=== PATIENT | female | born 1950 | race Caucasian/White ===

== ENCOUNTER 2024-08-24 14:24 | Outpatient (CLI) | payer MEDICARE, SELFPAY ==
[2024-08-24 15:14] LABS: Alanine Aminotransferase 23 U/L (6-35); Aspartate Amino Transferase 45 U/L (14-36)
== END 2024-08-24 14:25 | disposition home or self-care (01) ==
PROVIDERS: PCP Family Medicine; Visit Provider Podiatrist Foot & Ankle Surgery
DX: B35.1 Tinea unguium (principal)
CPT/HCPCS: 36415; 84450; 84460

== ENCOUNTER 2024-09-06 12:30 | Outpatient (CLI) | payer MEDICARE, SELFPAY ==
--- OUTSIDE RECORDS SUMMARY | 2024-09-06 13:03 | XMS_ITS | CCD ---
Author Name Interface, [id number] lity Address [address] [address] Organization [facility] Address [address] [address] Care Team Providers Care Summer Babysitter Name Role Phone Ryan Reece Unavailable Unavailable Reason for Visit Functional Status Date Name Score 02/22/2014 Karnofsky performance status 90 02/18/2013 Karnofsky performance status 90 03/05/2012 Karnofsky performance status 90 02/21/2011 Karnofsky performance status 90 07/31/2010 Karnofsky performance status 90 03/26/2010 Karnofsky performance status 90 02/05/2010 Karnofsky performance status 90 Medications Date Name Route Dose Frequency Instructions Start Date End Date Status 02/22 Thiamine Oral PO 1.0 TABLET(S) daily 2013 active 02/22 Thomas-3 Fatty Acids Oral PO 1.0 CAPSULE(S) daily 2013 active 02/22 Pantoprazole (Sodium) Oral Delayed Release PO 1.0 TABLET(S) daily 2013 active 02/22 Calcium Carb-Cholecalcif shelli Oral 600 mg-20 mcg (800 unit) PO 1.0 TABLET(S) daily 2013 active 02/22 Eucalyptus-Peppe rmint Oil Nasal Solution In each nostril 1.0 APPLICATION as directed 2013 active 02/22 Cevimeline Oral PO 1.0 CAPSULE(S) BID 2013 active 02/22 Docusate Sodium Oral PO 1.0 CAPSULE(S) PRN 2013 active 02/22 Gabapentin Oral PO 1.0 TABLET(S) daily 2013 active 02/22 Loratadine Oral PO 1.0 TABLET(S) daily 2013 active 02/22 Levothyroxine Oral PO 1.0 TABLET(S) daily 2013 active 02/22 Paroxetine Oral PO 1.0 TABLET(S) daily 2013 active 02/22 Aspirin Oral PO 1.0 TABLET(S) daily 2013 active 02/22 Fluticasone Nasal [place] 50 mcg/actuation Inhalation route 50.0 MCG daily 2013 active 02/22 Cholecalciferol Oral PO 1.0 CAPSULE(S) daily 2013 active 02/22 Miscellaneous Drug PO 1.0 TABLET(S), SUSTAINED ACTION daily 2013 active 02/22 Simvastatin Oral PO 1.0 TABLET(S) daily on hold while on bactrim 2013 active 02/22 Tolterodine Oral 24 hr Cap PO 1.0 CAPSULE(S), SUSTAINED RELEASE 24 HR daily 2013 active 02/22 Montelukast Oral PO 10.0 MG daily 2013 active 02/22 Dextrin Oral Powder GRAM as directed 2013 active 02/22 Diclofenac Oral Delayed Release PO 1.0 TABLET(S), ENTERIC COATED BID 2013 active 02/18 Aspirin Oral Delayed Release (Enteric Coated) PO 2.0 TABLET(S) daily 2012 active Problems Diagnosis Status Date of Diagnosi s Hypothyroidism (disorder) Active Body mass index [BMI] 45.0-49.9, adult Inactive Vitamin D deficiency (disorder) Active 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
--- OUTSIDE RECORDS SUMMARY | 2024-09-06 13:03 | XMS_ITS | CCD ---
Author Name Interface, [id number] lity Address [address] [address] Organization [facility] Address [address] [address] Care Team Providers Care Spanish Instructor Name Role Phone Ryan Reece Unavailable Unavailable [...] PO 1.0 TABLET(S) daily 2013 active 02/22 [place]-3 Fatty Acids Oral PO 1.0 CAPSULE(S) daily 2013 active 02/22 Eucalyptus-Peppe rmint Oil Nasal Solution In each nostril 1.0 APPLICATION as directed 2013 active 02/22 Calcium Carb-Cholecalcif shelli Oral 600 mg-20 mcg (800 unit) PO 1.0 TABLET(S) daily 2013 active 02/22 Pantoprazole (Sodium) Oral Delayed Release PO 1.0 TABLET(S) daily 2013 active 02/22 Cevimeline Oral PO 1.0 [...] TABLET(S) daily 2013 active 02/22 Fluticasone Nasal [place] 50 mcg/actuation Inhalation route 50.0 MCG daily [...] Body mass index [BMI] 45.0-49.9, adult Inactive 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
[2024-09-06 16:28] LABS: Basophils Absolute Auto 0.1 K/mm3 (0.0-0.1); Basophils Percent Auto 1.2 % (0.2-1.2); Eosinophils Absolute Auto 0.1 K/mm3 (0-0.3); Eosinophils Percent Auto 2.3 % (0-4.4); Hematocrit 38.9 % (37.0-47.0); Hemoglobin 12.4 g/dL (12.0-15.0); Immature Granulocyte Absolute 0.02 K/mm3 (0.00-0.031); Immature Granulocyte Percent A 0.4 % (0-0.5); Immature Platelet Fraction Pct 6.6 % (0.9-11.2); Lymphocytes Absolute Auto 1.64 K/mm3 (0.9-3.2); Lymphocytes Percent Auto 29.2 % (18.3-44.2); Mean Corpuscular HGB Conc 31.9 g/dl (32-36); Mean Corpuscular Hemoglobin 31.4 pg (26-34); Mean Corpuscular Volume 98.5 fl (80-100); Mean Platelet Volume 13.5 fl (7.4-10.4); Monocytes Absolute Auto 0.4 K/mm3 (0.1-0.6); Monocytes Percent Auto 7.3 % (2.6-8.5); Neutrophils Absolute Auto 3.3 K/mm3 (1.3-6.7); Neutrophils Percent Auto 59.6 % (45.5-73.1); Platelet Count Result 151 k/mm3 (150-375); Red Blood Count 3.95 M/mm3 (4.2-5.4); Red Cell Distribution Width 14.3 % (11.5-14.5); White Blood Count 5.6 K/mm3 (4.5-10.0)
[2024-09-06 17:45] LABS: Folic Acid > 20.0 ng/mL (2.76->20)
== END 2024-09-06 12:31 | disposition home or self-care (01) ==
LOC: ANHGOSHLAB 12:31
PROVIDERS: PCP Family Medicine; Visit Provider Otolaryngology Otolaryngology/Facial Plastic Surgery
DX: K14.0 Glossitis (principal); K14.4 Atrophy of tongue papillae
CPT/HCPCS: 36415; 82607; 82746; 85025; 85055

== ENCOUNTER 2024-09-17 10:01 | Outpatient (CLI) | payer MEDICARE, SELFPAY ==
--- NOTE | ~2024-09-17 | XR_ITS ---
EXAMINATION: XR hand RT 2V, XR hand LT 2V DATE: 09/17/2024 11:26 INDICATION: Sjogren syndrome with keratoconjunctivitis TECHNIQUE: 1. Posteroanterior and lateral views of the left hand were obtained. 2. Posteroanterior and lateral views of the right hand were obtained. COMPARISON: None. FINDINGS: Left hand: Bone alignment is normal. No fracture. Polyarticular osteoarthritis, severe at the first carpal metac arpal joint, moderate at the triscaphe joint and mild at the wrist, first metacarpophalangeal and mul tiple predominantly distal interphalangeal joints. No erosions to suggest an inflammatory arthritis. Chondrocalcinosis in the region of the triangular fibrocartilage complex. Sclerotic bone island versu s loose body projects over the distal ulna. Mild soft tissue swelling at the ulnar aspect of the wris t. Right hand: Bone alignment is normal. No fracture. Mild polyarticular osteoarthritis at the wrist, radial aspect of the carpus and multiple metacarpophalangeal and interphalangeal joints. No erosions to suggest inf lammatory arthritis. Additional chondral calcinosis of the right triangular fibrocartilage complex. S oft tissues are unremarkable. IMPRESSION: 1. Polyarticular osteoarthritis at the bilateral hands and wrists, moderate to severe at the radial a spect of the left carpus and otherwise mild. Reviewed, dictated and finalized at location B. NG CAN TENDER IMPRESSION: 1. Polyarticular osteoarthritis at the bilateral hands and wrists, moderate to severe at the radial aspect of the left carpus and otherwise mild.
--- NOTE | ~2024-09-17 | XR_ITS ---
EXAMINATION: XR_CERV2-3V_CR DATE: 09/17/2024 11:26 INDICATION: Sjogren syndrome with keratoconjunctivitis. TECHNIQUE: 4 views of cervical spine were obtained. COMPARISON: None. FINDINGS: There is 9 degrees levocurvature of cervicothoracic spine. Vertebral body heights are nora l. There is mildly decreased disc height at C5-C6. There is multilevel mild facet joint osteoarthriti s. No central canal stenosis or prevertebral soft tissue swelling. IMPRESSION: 1. Mild cervical spondylosis. Reviewed, dictated and finalized at location A. N YARN DYER
--- NOTE | ~2024-09-17 | XR_ITS ---
EXAMINATION: XR foot RT 2V DATE: 09/17/2024 11:26 INDICATION: Sjogren's syndrome with keratoconjunctivitis. TECHNIQUE: 2 views of right foot were obtained. COMPARISON: None. FINDINGS: There is a rocker-bottom foot. There are changes of arthrodesis of talus, calcaneus, navicu lar, and cuboid with multiple screws and padmini. No fracture. There is severe osteoarthritis of the naviculocuneiform joints. IMPRESSION: 1. Rocker-bottom foot. 2. Arthrodesis procedures involving the talus, calcaneus, navicular, and cuboid. 3. Severe osteoarthritis of the naviculocuneiform joints. Reviewed, dictated and finalized at location A. AN TUTOR IMPRESSION: 1. Rocker-bottom foot. 2. Arthrodesis procedures involving the talus, calcaneus, navicular, and cuboid . 3. Severe osteoarthritis of the naviculocuneiform joints.
--- NOTE | ~2024-09-17 | XR_ITS ---
EXAMINATION: XR lumbar spine 2-3V DATE: 09/17/2024 11:26 INDICATION: Sjogren syndrome with keratoconjunctivitis. TECHNIQUE: 3 views of lumbar spine were obtained. COMPARISON: None. FINDINGS: There is 29 degrees dextroscoliosis of lumbar spine. There is 3 mm retrolisthesis of L1 on L2 and L2 on L3 and 6 mm anterolisthesis of L4 and L5. Vertebral body heights are normal. There is se verely decreased disc height at L1-L2 and L2-L3 and moderately decreased disc height at L3-L4 and L4- L5. There is multilevel severe facet joint osteoarthritis. There are surgical clips in right abdomen. There is a lap band in expected position. IMPRESSION: 1. Severe lumbar spondylosis. 2. Lumbar dextroscoliosis. Reviewed, dictated and finalized at location A. SHEARER
--- NOTE | ~2024-09-17 | XR_ITS ---
EXAMINATION: XR sacroiliac joints min 3V DATE: 09/17/2024 11:26 INDICATION: Sjogren's syndrome with keratoconjunctivitis. TECHNIQUE: 3 views of the sacroiliac joints were obtained. COMPARISON: None. FINDINGS: There is lumbar dextro scoliosis and severe spondylosis. No fracture. There is mild osteoar thritis of the sacroiliac joints and hip joints. IMPRESSION: 1. Mild osteoarthritis of the sacroiliac joints. No evidence of inflammatory arthropathy. Reviewed, dictated and finalized at location A. ING HAND IMPRESSION: 1. Mild osteoarthritis of the sacroiliac joints. No evidence of inflammatory ar thropathy.
--- NOTE | ~2024-09-17 | XR_ITS ---
EXAMINATION: XR foot LT 2V DATE: 09/17/2024 11:26 INDICATION: Sjogren syndrome with keratoconjunctivitis. TECHNIQUE: 2 views of left foot were obtained. COMPARISON: None. FINDINGS: There is a rocker-bottom foot. There is fusion of the talus, calcaneus, navicular, cuneifor ms, and cuboid with multiple screws and padmini. There is osteoarthritis of Lisfranc joint, severe at first tarsometatarsal joint. There is mild osteoarthritis of first metatarsophalangeal joint and prosper e of the interphalangeal joints. There is a retained wire in the lateral ankle and hindfoot. There is an 8 mm subcutaneous density plantar to the midfoot that may be dystrophic calcification. IMPRESSION: 1. Rocker-bottom foot with hindfoot and midfoot arthrodesis. 2. Polyarticular osteoarthritis, severe at first tarsometatarsal joint. Reviewed, dictated and finalized at location A. RT COOLER
[2024-09-17 10:45] LABS: Add Urine Microscopic? NO; Appearance Urine Clear (Clear); Bilirubin Urine Negative (Negative); Blood Urine Negative (Negative); Color Urine Yellow (Yellow); Glucose Urine UA Negative (Negative); Ketones Urine Negative (Negative); Leukocyte Esterase Ur Negative LEU/UL (Negative); Nitrate Urine Negative (Negative); Protein Urine Negative (Negative); Specific Grav Ur 1.006 (1.001-1.035); Urobilinogen Urine 0.2 mg/dL (<2.0); pH Urine 5.5 (5.0-9.0)
[2024-09-17 10:46] LABS: Basophils Percent Auto 0.8 % (0.2-1.2); Eosinophils Absolute Auto 0.2 K/mm3 (0-0.3); Hematocrit 37.9 % (37.0-47.0); Immature Granulocyte Absolute 0.01 K/mm3 (0.00-0.031); Immature Granulocyte Percent A 0.2 % (0-0.5); Lymphocytes Absolute Auto 1.38 K/mm3 (0.9-3.2); Lymphocytes Percent Auto 27.4 % (18.3-44.2); Mean Corpuscular HGB Conc 31.7 g/dl (32-36); Mean Corpuscular Hemoglobin 30.8 pg (26-34); Mean Corpuscular Volume 97.4 fl (80-100); Mean Platelet Volume 10.9 fl (7.4-10.4); Monocytes Absolute Auto 0.2 K/mm3 (0.1-0.6); Monocytes Percent Auto 4.8 % (2.6-8.5); Neutrophils Absolute Auto 3.2 K/mm3 (1.3-6.7); Neutrophils Percent Auto 63.8 % (45.5-73.1); Platelet Count Result 157 k/mm3 (150-375); Red Blood Count 3.89 M/mm3 (4.2-5.4); Red Cell Distribution Width 14.3 % (11.5-14.5)
--- OUTSIDE RECORDS SUMMARY | 2024-09-17 10:48 | XMS_ITS | CCD ---
Author Name Interface, [id number] lity Address [address] [address] [facility] Address [address] [address] Care Team Providers Care Hospital Education Coordinator Name Role Phone Ryan Reece Unavailable Unavailable Reason for Visit Functional Status Medications Problems
--- OUTSIDE RECORDS SUMMARY | 2024-09-17 10:48 | XMS_ITS | CCD ---
Author Name Interface, [id number] lity Address [place] [address] Organization [facility] Address [address] [address] Care Team Providers Care Roller Mill Tender Name Role Phone Ryan Reece Unavailable Unavailable [...] PO 1.0 TABLET(S) daily 2013 active 02/22 [place]-3 Fatty Acids Oral PO 1.0 CAPSULE(S) daily [...] TABLET(S) daily 2013 active 02/22 Fluticasone Nasal [place] 50 mcg/actuation Inhalation route 50.0 MCG daily [...]
[2024-09-17 10:56] LABS: Rheumatoid Factor < 12.0 IU/ML (<12)
[2024-09-17 10:57] LABS: Alanine Aminotransferase 23 U/L (6-35); Albumin Level 4.3 g/dL (3.5-5.1); Alkaline Phosphatase 44 U/L (38-126); Anion Gap 7 mmol/L (4-12); Aspartate Amino Transferase 30 U/L (14-36); Bilirubin,Total 0.8 mg/dL (0.2-1.3); Blood Urea Nitrogen 20 mg/dL (7-17); CRP < 0.5 mg/dL (<1.0); Calcium 9.5 mg/dL (8.4-10.2); Carbon Dioxide 32 mmol/L (22-30); Chloride 100 mmol/L (98-107); Estimated Glomerular Filt Rate > 60; Glucose 84 mg/dL (65-110); Phosphorus 3.5 mg/dL (2.5-4.5); Potassium 4.1 mmol/L (3.4-5.0); Sodium 139 mmol/L (137-145); Uric Acid 5.7 mg/dL (2.5-7.5)
[2024-09-17 11:18] LABS: Erythrocyte Sedimentation Rate 21 mm/hr (0-20)
[2024-09-20 13:53] LABS: Cyclic Citrullinated Peptide <16 UNITS
[2024-09-21 11:58] LABS: NIL 0.03 IU/mL; Quantiferon TB Plus, 1T NEGATIVE (NEGATIVE); TB1-NIL <0.00 IU/mL; TB2-NIL <0.00 IU/mL
[2024-09-21 13:03] LABS: ANA Pattern Cytoplasmic; ANA Titer 1:40 titer; Anti Nuclear Antibody Pattern Nuclear Envelope
== END 2024-09-17 10:02 | disposition home or self-care (01) ==
PROVIDERS: PCP Family Medicine; Visit Provider Internal Medicine
DX: M47.818 Spondylosis without myelopathy or radiculopathy, sacral and sacrococcygeal region (principal); M47.816 Spondylosis without myelopathy or radiculopathy, lumbar region; M41.86 Other forms of scoliosis, lumbar region; M47.812 Spondylosis without myelopathy or radiculopathy, cervical region; M25.542 Pain in joints of left hand; M25.541 Pain in joints of right hand; M25.532 Pain in left wrist; M25.531 Pain in right wrist; Q66.89 Other specified congenital deformities of feet; Z98.1 Arthrodesis status; M19.09 Primary osteoarthritis, other specified site; M19.071 Primary osteoarthritis, right ankle and foot; M35.01 Sjogren syndrome with keratoconjunctivitis; M81.0 Age-related osteoporosis without current pathological fracture
CPT/HCPCS: 36415; 72040; 72100; 72202; 73120; 73620; 80053; 81003; 84100; 84443; 84550; 85025; 85652; 86038; 86039; 86140; 86200; 86430; 86480

== ENCOUNTER 2024-11-23 14:02 | Outpatient (CLI) | payer MEDICARE, SELFPAY ==
[2024-11-23 15:01] LABS: Alanine Aminotransferase 23 U/L (6-35); Aspartate Amino Transferase 48 U/L (14-36)
--- OUTSIDE RECORDS SUMMARY | 2024-11-23 15:12 | XMS_ITS | CCD ---
Author Name Interface, [id number] lity Address [place] [address] Organization [facility] Address [address] [address] Care Team Providers Care Christian Education Director Name Role Phone Ryan Reece Unavailable Unavailable [...] PO 1.0 TABLET(S) daily 2013 active 02/22 [place]-3 Fatty Acids Oral PO 1.0 CAPSULE(S) daily [...] TABLET(S) daily 2013 active 02/22 Fluticasone Nasal [place] 50 mcg/actuation Inhalation route 50.0 MCG daily 2013 active 02/22 Cholecalciferol Oral PO 1.0 CAPSULE(S) daily 2013 active 02/22 Miscellaneous Drug PO 1.0 TABLET(S), SUSTAINED ACTION daily 2013 active 02/22 Simvastatin Oral PO 1.0 TABLET(S) daily on hold while on bactrim 2013 active 02/22 Montelukast Oral PO 10.0 MG daily 2013 active 02/22 Tolterodine Oral 24 hr Cap PO 1.0 CAPSULE(S), SUSTAINED RELEASE 24 HR daily 2013 active 02/22 Dextrin Oral Powder [...]
--- OUTSIDE RECORDS SUMMARY | 2024-11-23 15:13 | XMS_ITS | Patient Health Record ---
[facility] Address [address] [place] [address] Care Team Providers Care Tile Molder Hand Name Role Phone DO NOT USE November Primary Care Provider ANNA Velez Unavailable [phone] Allergies Allergen (clinical drug ingredient) Drug/Non Drug Allergy documented on EMR Reaction Allergy Type Onset Date Status adhesive on legs (uncoded) Unknown Allergy Active Benzoin Unknown Drug Allergy Active ciprofloxacin Cipro Unknown Drug Allergy Act holly erythromycin Erythromycin Unknown Drug Allergy A ctive ketoprofen Ketoprofen Unknown Drug Allergy Activ e penicillamine Penicillamine Unknown Drug Allergy Active Tetanus Unknown Drug Allergy Active Reason For Referral No Information Medications Medication SIG (Take, Route, Frequency, Duration) Notes Start Date End Date Status Folic Acid 800 MCG 1 tablet Orally Once a day Active Probiotic - Orally Active traMADol HCl 50 MG as directed Orally Active Vitamin B1 Active Cevimeline HCl 30 MG 1 capsule Orally Th ree times a day for 30 day(s) Active Fish Oil Active [place] 10-325 MG 1 tablet as needed Orally every 6 hrs Active Colace 100 MG 1 capsule as needed Orally Once a day Active Aspirin 81 MG 1 tablet Orally Once a day Active Vitamin B12 Active Levothroid Active Systane Active Vitamin C ER 500 MG 1 capsule Orally Onc e a day for 30 day(s) Active Glucosamine Chondroitin Complx - Orally Active Singulair 10 MG 1 tablet Orally Once a day for 30 day(s) Active Zolpidem Tartrate 10 MG 1 tablet at bedt shayla as needed Orally Once a day Active Simvastatin 20 MG 1 tablet in the even ing Orally Once a day Active Nasacort Allergy 24HR 55 MCG/ACT 1 spray in each nostril Nasally Once a day Active Cyclobenzaprine HCl 10 MG Oral for 14 Active Vitamin C 500 MG as directed Orally Active Caltrate 600+D 600-800 MG-UNIT 1 tablet with a meal Orally Once a day Active Paxil 10 MG 1 tablet in the morn ing Orally Once a day for 30 day(s) Active CoQ10 200 MG 1 capsule with a asad l Orally Once a day Active Albuterol Sulfate HFA 108 (90 Base) MCG/ACT 2 puffs as needed Inhalation every 6 hrs Active Iron 325 (65 Fe) MG 1 tablet Orally Once a day for 30 day(s) Active Imitrex 100 MG 1 tablet as needed Orally Twice a day Active Vitamin D3 5000 UNIT 1 tablet Orally Onc e a day Active Diclofenac Potassium 50 MG Oral for 30 Active Zocor 20 MG 1 tablet in the even ing Orally Once a day Active Mupirocin 2 % 1 application to affected area Externally Three times a day Active Sherry Allergy 180 MG 1 tablet as neede d Orally Once a day Active Advair Diskus 250-50 MCG/DOSE 1 puff Inhalation Twice a day Active Pantoprazole Sodium 40 MG 1 tablet Orall y Once a day for 30 day(s) Active Synthroid 150 MCG 1 tablet on an empty stomach in the morning Orally Once a day Active Montelukast Sodium 10 MG 1 tablet Orally Once a day for 30 day(s) Active Mucinex Active Social History Tobacco Use: Social History Observation Description Date Details (start date - stop date) Former Smoker NA - NA Tobacco Use/Smoking Question Answer Notes You are a former smoker Problems Problem Type SNOMED Code ICD Code Onset Dates Problem Status W/U Status Risk Notes Problem Peripheral venous insufficiency (25405692) Venous insufficiency (chronic) (peripheral) (I87.2) Active confirmed Problem [id number] Venous insufficiency (I87.2) Active confirmed Problem Varicose veins of lower extremity (15953740) 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) Active confirmed Plan Of Treatment No Information Insurance Providers Payer Name Payer Address Payer Phone Subscriber Number Group Number Insured Name Patient Relationship to Insured Coverage Start Date Coverage End Date MED[employer]ARE OF [place] [address] [place] [phone] [id number] MIRIAN CASIANO Self - patient is the insured 6 [facility] [employer] [address] [place] [address] [id number] PLAN F MIRIAN CASIANO Self - patient is the insured 6 Medical (General) History Medical History History ICD Code thyroid disease diverticulosis emphysema arthritis anemia asthma heart disease heart murmur Surgical History Surgery Date(Month/Year) eye surgery cholecystectomy foot surgery endovenous ablation knee replacement maxillary antrosomies
--- OUTSIDE RECORDS SUMMARY | 2024-11-23 15:13 | XMS_ITS | CCD ---
Author Name Interface, [id number] lity Address [place] [address] Organization [facility] Address [place] breakthroughs[place] [address] Care Team Providers Care Biodiesel Plant Manager Name Role Phone Ryan Reece Unavailable Unavailable [...] PO 1.0 TABLET(S) daily 2013 active 02/22 [place]-3 Fatty Acids Oral PO 1.0 CAPSULE(S) daily [...] TABLET(S) daily 2013 active 02/22 Fluticasone Nasal Emily 50 mcg/actuation Inhalation route 50.0 MCG daily [...]
== END 2024-11-23 14:03 | disposition home or self-care (01) ==
PROVIDERS: PCP Family Medicine; Visit Provider Podiatrist Foot & Ankle Surgery
DX: B35.1 Tinea unguium (principal)
CPT/HCPCS: 36415; 84450; 84460

== ENCOUNTER 2024-12-10 13:01 | Emergency (ER) | payer MEDICARE, SELFPAY ==
[2024-12-10] VITALS (16 sets, daily range): BP systolic 100–114; BP diastolic 44–64; PULSE 59–65; RESP 14–20; TEMP 36.2; O2SAT 96–100
--- NOTE | ~2024-12-10 | XR_ITS ---
Clinical Indication: Palpitations PA and lateral views of the chest: Comparison: None Findings: The lungs are clear, without evidence of focal consolidation or pleural effusion. Cardiome diastinal silhouette is prominent. Right shoulder arthroplasty present. Impression: No acute pulmonary abnormality. Cardiomegaly. Reviewed, dictated and finalized at [facility]. Impression: No acute pulmonary abnormality. Cardiomegaly.
--- NOTE | 2024-12-10 13:04 | ECG_ITS ---
Test Date: 2024-12-10 13:15:52 Measurements Intervals [place] Rate: 64 P: -37 MS: 271 QRS: -7 QRSD: 96 T: 59 QT: 406 QTc: 419 Interpretive Statements SINUS RHYTHM WITH FIRST DEGREE AV BLOCK No previous ECG available for comparison Electronically Signed On 12-10-2024 19:14:48 CDT by Ashlee Hutchinson
--- NOTE | 2024-12-10 13:17 | ED.ARRPALP ---
HPI - Arrhythmia/Palpitations General Chief Complaint: Arrhythmia/Palpitations <Ijeoma Anand STORE PRODUCT DEMONSTRATOR - Last Filed: 12/10/24 13:21> Stated Complaint: Palpitations, left shoulder pain <Ijeoma Anand APRN - Last Filed: 12/10/24 13:21> Time Seen by Provider: 12/10/24 13:15 <Ijeoma Anand STORE PRODUCT DEMONSTRATOR - Last Filed: 12/10/24 13:21> Focused HPI: Patient is a 74-year-old female who presents to the ER with palpitations. She reports she went for a walk earlier today and when she got home she felt her heart racing. Patient reports she took her vital signs and her blood pressure was low and her heart rate was low and irregular. She also endorses chest pain that radiated to her left shoulder. Patient reports she has a history of CHF, 2 blockages, and COPD. She denies any recent fevers, back pain, urinary symptoms, or acute leg swelling. Patient reports she had a separate incident similar to this one on December 03 but she did not come to the ER for evaluation at that time. GENERAL: Well-appearing, obese, and in no acute distress. HEAD: Normocephalic, atraumatic. CHEST: Clear to auscultation. ?No respiratory distress. HEART: Irregular rate and rhythm.? NEURO: ?Alert and oriented x3. Patient screened in triage and initial orders placed.? ?Additional care and disposition to be based upon?diagnostic testing and treatment. <Ijeoma Anand, STORE PRODUCT DEMONSTRATOR - Last Filed: 12/10/24 13:21> Focused HPI: Patient is a 74-year-old female who presents to the ER with palpitations. She reports she went for a walk earlier today and during the walk she felt her beating irregularly but slow. Patient reports she took her vital signs and her blood pressure was low and her heart rate was low and irregular. She also endorses chest pain that radiated to her left shoulder. Patient reports she has a history of CHF, 2 blockages, and COPD. She denies any recent fevers, back pain, urinary symptoms, or acute leg swelling. Patient reports she had a separate incident similar to this one on December 03 but she did not come to the ER for evaluation at that time. GENERAL: Well-appearing, obese, and in no acute distress. HEAD: Normocephalic, atraumatic. CHEST: Clear to auscultation. ?No respiratory distress. HEART: Irregular rate and rhythm.? NEURO: ?Alert and oriented x3. Patient screened in triage and initial orders placed.? ?Additional care and disposition to be based upon?diagnostic testing and treatment. <Ole Mcmahan MD - Last Filed: 12/10/24 21:33> History of Present Illness HPI narrative: I agree with the above HPI Patient reports that she did have a stress echo and cardiology workup in [place] in May of 2024. Patient denies any history of coronary artery disease but does have history of CHF During the episode today patient denies any chest pain. Patient does have emphysema and states she had unchanged shortness of breath <Ole Mcmahan MD - Last Filed: 12/10/24 21:33> Related Data Home Medications: Home Medications ?Medication ?Instructions ?Recorded ?Confirmed ?Last Taken ?Type Bacillus coagulans [Probiotic (B. PO 09/06/24 10/12/24 Unknown History coagulans)] albuterol sulfate 90 mcg/actuation 2 puff inhalation Q6H PRN 09/06/24 10/12/24 Unknown History aerosol inhaler (Ventolin HFA) shortness of breath or wheezing oweki-d-vinkfsywkmifb 400 unit 400 unit PO DAILY PRN 09/06/24 10/12/24 Unknown History tablet (Beano) ascorbate calcium (vitamin C) 500 500 mg PO DAILY 09/06/24 10/12/24 Unknown History mg tablet aspirin 81 mg tablet 81 mg PO DAILY 09/06/24 10/12/24 Unknown History calcium 600 mg (as carbonate)-vit 1 tablet PO DAILY 09/06/24 10/12/24 Unknown History D3 20 mcg (800 unit) chewable tablet (Caltrate plus D) cevimeline 30 mg capsule 1 cap PO TID 09/06/24 10/12/24 Unknown History coenzyme Q10 100 mg capsule 200 mg PO DAILY 09/06/24 10/12/24 Unknown History (CoQ-10) diclofenac sodium 1 % topical gel 2 g topical TID 09/06/24 10/12/24 Unknown History (Arthritis Pain (diclofenac)) diosmin complex no.1 900 mg PO QAM 09/06/24 10/12/24 Unknown History docusate sodium 100 mg capsule 200 mg PO QHS 09/06/24 10/12/24 Unknown History (Colace) ferrous sulfate 325 mg (65 mg 325 mg PO QHS 09/06/24 10/12/24 Unknown History iron) tablet fexofenadine 60 mg tablet (Sherry 60 mg PO Q12H 09/06/24 10/12/24 Unknown History Allergy) fluticasone propionate 230 2 puff inhalation BID 09/06/24 10/12/24 Unknown History mcg-salmeterol 21 mcg/actuation HFA inhaler (Advair HFA) folic acid 800 mcg tablet 0.8 mg PO 3XW 09/06/24 10/12/24 Unknown History furosemide 40 mg tablet (Lasix) 40 mg PO QAM 09/06/24 10/12/24 Unknown History glucosamine 750 jo-jptcqvsmdse-bga tablet PO 09/06/24 10/12/24 Unknown History no1 625 mg-C 30 mg-eliceo 1 mg tablet (Jbkfuognatj-Gcnipxdzoky-BLM) guaifenesin 1,200 mg tablet, 1,200 mg PO BID 09/06/24 10/12/24 Unknown History extended release 12 hr (Mucinex) ketotifen fumarate 0.025 % (0.035 1 drp EACH EYE BID 09/06/24 10/12/24 Unknown History %) eye drops (Alaway) lactulose 10 gram/15 mL oral 10 g PO QAM 09/06/24 10/12/24 Unknown History solution levothyroxine 112 mcg tablet 112 mcg PO DAILY 09/06/24 10/12/24 Unknown History (Synthroid) mecobalamin (vitamin B12) 5,000 5,000 mcg PO WEEKLY 09/06/24 10/12/24 Unknown History mcg chewable tablet montelukast 10 mg tablet 10 mg PO QHS 09/06/24 10/12/24 Unknown History mupirocin 2 % topical ointment 1 applic topical QPM 09/06/24 10/12/24 Unknown History (Centany) omega 4-uhb-abo-fish oil 1,000 mg 2 cap PO BID 09/06/24 10/12/24 Unknown History (120 mg-180 mg) capsule (Fish Oil) paroxetine HCl 10 mg tablet 10 mg PO DAILY 09/06/24 10/12/24 Unknown History simethicone 125 mg capsule (Gas-X 125 mg PO DAILY PRN 09/06/24 10/12/24 Unknown History Extra Strength) spironolactone 50 mg tablet 50 mg PO DAILY 09/06/24 10/12/24 Unknown History terbinafine HCl 250 mg tablet 250 mg PO DAILY 09/06/24 10/12/24 Unknown History thiamine HCl (vitamin B1) 250 mg 250 mg PO DAILY 09/06/24 10/12/24 Unknown History tablet triamcinolone acetonide 55 mcg 1 spray intranasal BID 09/06/24 10/12/24 Unknown History nasal spray aerosol (Nasacort) cholecalciferol (vitamin D3) 125 125 mcg PO DAILY 10/12/24 10/12/24 Unknown History mcg (5,000 unit) tablet pantoprazole 40 mg tablet,delayed 40 mg PO QAM 10/12/24 10/12/24 Unknown History release zoledronic acid 5 mg/100 mL in 5 ea IV .qyearly 10/12/24 10/12/24 Unknown History mannitol 5 %-water intravenous piggybck (Reclast) <Ijeoma Anand, STORE PRODUCT DEMONSTRATOR - Last Filed: 12/10/24 13:21> Allergies/Adverse Reactions: Allergies Allergy/AdvReac Type Severity Reaction Status Date / Time adhesive Allergy Unknown Itching Verified 12/10/24 13:02 benzoin Allergy Unknown Rash Verified 12/10/24 13:02 Cephalosporins Allergy Unknown Hives Verified 12/10/24 13:02 erythromycin base Allergy Unknown Unknown Verified 12/10/24 13:02 ketoprofen Allergy Unknown Rash Verified 12/10/24 13:02 Penicillins Allergy Unknown Hives Verified 12/10/24 13:02 tetanus and diphtheria Allergy Unknown Itching Verified 12/10/24 13:02 toxoids <Ijeoma Anand, STORE PRODUCT DEMONSTRATOR - Last Filed: 12/10/24 13:21> Review of Systems Review of Systems: All systems reviewed & are unremarkable except as noted in HPI and below <Ole Mcmahan MD - Last Filed: 12/10/24 21:33> PMFSH Past Medical History Medical History: Medical History Chronic venous insufficiency of lower extremity Insomnia CHRISTIE (obstructive sleep apnea) Tinnitus, right Osteoarthritis Irritable bowel syndrome with constipation Vitamin B12 deficiency Onychomycosis Depression Environmental allergies CHF (congestive heart failure) CAD (coronary artery disease) Dyslipidemia Vertigo Age related osteoporosis Deviated septum Hx of migraines Hypothyroidism Asthma 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 Glossitis Perforated ear drum <Ijeoma Anand APRN - Last Filed: 12/10/24 13:21> Surgical History Surgical History: Surgical History History of surgery on lower extremity (~11/2011) ORIF left femur fracture Status post endovenous radiofrequency ablation of saphenous vein right(09/2009), left(10/2009) History of fasciotomy (~2001) left plantar fasciotomy History of eye surgery (~1964) strabismus correction History of foot surgery (~1989) b/l foot joint orthrodesis History of cholecystectomy (~1978) History of laparoscopic adjustable gastric banding (~2009) H/O sinus surgery (~11/2015) right and left turbinate reduction, left maxillary antrostomy History of right shoulder replacement (~02/18/17) History of right knee joint replacement (~04/28/12) History of left knee replacement (~11/05/11) <Ijeoma Anand APRN - Last Filed: 12/10/24 13:21> Family History Family History: Family History Father Diabetes mellitus Pancreatic cancer Mother Diabetes mellitus Hypertension Arthritis Grandparent Cerebrovascular accident Breast cancer Arthritis Unknown Breast cancer Aunt, cousin <Ijeoma Anand APRN - Last Filed: 12/10/24 13:21> Social History Social History: Social History Smoking status: Never smoker <Ijeoma Anand APRN - Last Filed: 12/10/24 13:21> Exam Narrative: APPEARANCE: Well appearing, no pain, no distress, well-nourished. HEAD: normocephalic, atraumatic. EYES: PERRLA/EOMI, conjunctivae clear. NOSE: Normal no drainage EARS:TMS clear with good light reflex. THROAT: Pharynx clear, no exudate. NECK: Supple. No adenopathy, no masses. RESPIRATORY: Airway patent, respirations nonlabored. Clear to auscultation bilaterally, no rales, rhonchi, wheezing. CARDIOVASCULAR: Regular rate and rhythm without murmurs rubs or gallops. ABDOMINAL: Soft, nontender, nondistended, normal bowel sounds MUSCULOSKELETAL: Moves all extremities. Strength/ROM intact, No edema, No calf tenderness. NEURO: Alert. Cranial nerves II through XII intact. Good gait. Good coordination SKIN: Warm, dry. Normal Color <Ole Mcmahan MD - Last Filed: 12/10/24 21:33> Course Vital Signs Vital signs: Vital Signs Temperature 97.2 F L 12/10/24 13:23 Pulse Rate 65 12/10/24 13:23 Respiratory Rate 16 12/10/24 13:23 Blood Pressure 109/56 L 12/10/24 13:23 Pulse Oximetry 100 12/10/24 13:23 Temperature 97.2 F L 12/10/24 13:23 Pulse Rate 61 12/10/24 15:32 Respiratory Rate 20 12/10/24 15:32 Blood Pressure 102/50 L 12/10/24 15:32 Pulse Oximetry 98 12/10/24 15:32 Oxygen Delivery Room Air 12/10/24 14:08 <Ijeoma Anand APRN - Last Filed: 12/10/24 13:21> Vital Signs Temperature 97.2 F L 12/10/24 13:23 Pulse Rate 65 12/10/24 13:23 Respiratory Rate 16 12/10/24 13:23 Blood Pressure 109/56 L 12/10/24 13:23 Pulse Oximetry 100 12/10/24 13:23 Temperature 97.2 F L 12/10/24 13:23 Pulse Rate 61 12/10/24 15:32 Respiratory Rate 20 12/10/24 15:32 Blood Pressure 102/50 L 12/10/24 15:32 Pulse Oximetry 98 12/10/24 15:32 Oxygen Delivery Room Air 12/10/24 14:08 <Ole Mcmahan MD - Last Filed: 12/10/24 21:33> MDM - Arrhythmia/Palpitations MDM Narrative Medical decision making narrative: 74-year-old female presents emergency department for evaluation for a slow irregular heartbeat. Patient denies any feelings of syncope. Patient is currently afebrile with no leukocytosis and hemoglobin 11.6. Patient's INR is 1.1. Patient has no significant abnormalities on her CMP and a negative troponin. Patient's pro BNP is elevated at 400. Patient does have lower extremity edema she states similar to her baseline. Chest x-ray shows no acute cardiopulmonary abnormality but does show cardiomegaly. Holter monitor was ordered and this will be placed by Cardiology prior to discharge. <Ole Mcmahan MD - Last Filed: 12/10/24 21:33> Differential Diagnosis Differential diagnosis: Likely palpitations, anxiety, sinus tachycardia, artial fibrillation and artial flutter <Ole Mcmahan MD - Last Filed: 12/10/24 21:33> Lab Data Attestation: I reviewed the patient's lab results. <Ole Mcmahan MD - Last Filed: 12/10/24 21:33> Result diagrams: 12/10/24 13:28 12/10/24 13:28 <Ijeoma Anand APRN - Last Filed: 12/10/24 13:21> Labs: Lab Results 12/10/24 12/10/24 Range/Units 13:28 13:28 WBC 5.9 (4.5-10.0) K/mm3 RBC 3.74 L (4.2-5.4) M/mm3 Hgb 11.6 L (12.0-15.0) g/dL Hct 36.7 L (37.0-47.0) % MCV 98.1 (80-100) fl MCH 31.0 (26-34) pg MCHC 31.6 L (32-36) g/dl RDW 14.5 (11.5-14.5) % Plt Count 167 (150-375) k/mm3 MPV 10.8 H (7.4-10.4) fl Immature Gran % (Auto) 0.2 (0-0.5) % Neut % (Auto) 69.2 (45.5-73.1) % Lymph % (Auto) 20.8 (18.3-44.2) % [place] % (Auto) 5.6 (2.6-8.5) % Eos % (Auto) 3.2 (0-4.4) % Baso % (Auto) 1.0 (0.2-1.2) % Lymph # (Auto) 1.23 (0.9-3.2) K/mm3 [place] # (Auto) 0.3 (0.1-0.6) K/mm3 Eos # (Auto) 0.2 (0-0.3) K/mm3 Baso # (Auto) 0.1 (0.0-0.1) K/mm3 Abs Immat Gran (auto) 0.01 (0.00-0.031) K/mm3 Absolute Neuts (auto) 4.1 (1.3-6.7) K/mm3 Absolute Nucleated RBC 0.000 (0.0-0.012) K/mm3 Nucleated RBC % 0.0 (0.0-0.2) % PT 14.0 (11.1-14.7) Seconds INR 1.1 APTT 29.5 (22.3-36.8) Seconds Sodium 136 L (137-145) mmol/L Potassium 4.5 (3.4-5.0) mmol/L Chloride 98 (98-107) mmol/L Carbon Dioxide 30 (22-30) mmol/L Anion Gap 8 (4-12) mmol/L BUN 25 H (7-17) mg/dL Creatinine 1.05 H (0.7-1.0) mg/dL Estim Creat Clear Calc 49 ml/min Estimated GFR 51 L (59 - ) Glucose 89 (65-110) mg/dL Calcium 9.1 (8.4-10.2) mg/dL Magnesium 2.4 H (1.6-2.3) mg/dL Total Bilirubin 0.8 (0.2-1.3) mg/dL AST 36 (14-36) U/L ALT 25 (6-35) U/L Alkaline Phosphatase 43 (38-126) U/L Troponin I 0.024 (0.000-0.034) ng/mL NT-Pro-B Natriuret Pep 400 H Cancelled (19.9-100) pg/mL Total Protein 7.0 (6.3-8.2) g/dL Albumin 4.4 (3.5-5.1) g/dL Lipase 110 (23-300) U/L TSH (Reflex) 5.280 H (0.465-4.68) uIU/mL Free T4 1.71 (0.78-2.19) ng/dL Total T3 1.55 (0.97-1.69) NG/ML <Ijeoma Anand, STORE PRODUCT DEMONSTRATOR - Last Filed: 12/10/24 13:21> Lab Results 12/10/24 12/10/24 Range/Units 13:28 13:28 WBC 5.9 (4.5-10.0) K/mm3 RBC 3.74 L (4.2-5.4) M/mm3 Hgb 11.6 L (12.0-15.0) g/dL Hct 36.7 L (37.0-47.0) % MCV 98.1 (80-100) fl MCH 31.0 (26-34) pg MCHC 31.6 L (32-36) g/dl RDW 14.5 (11.5-14.5) % Plt Count 167 (150-375) k/mm3 MPV 10.8 H (7.4-10.4) fl Immature Gran % (Auto) 0.2 (0-0.5) % Neut % (Auto) 69.2 (45.5-73.1) % Lymph % (Auto) 20.8 (18.3-44.2) % [place] % (Auto) 5.6 (2.6-8.5) % Eos % (Auto) 3.2 (0-4.4) % Baso % (Auto) 1.0 (0.2-1.2) % Lymph # (Auto) 1.23 (0.9-3.2) K/mm3 [place] # (Auto) 0.3 (0.1-0.6) K/mm3 Eos # (Auto) 0.2 (0-0.3) K/mm3 Baso # (Auto) 0.1 (0.0-0.1) K/mm3 Abs Immat Gran (auto) 0.01 (0.00-0.031) K/mm3 Absolute Neuts (auto) 4.1 (1.3-6.7) K/mm3 Absolute Nucleated RBC 0.000 (0.0-0.012) K/mm3 Nucleated RBC % 0.0 (0.0-0.2) % PT 14.0 (11.1-14.7) Seconds INR 1.1 APTT 29.5 (22.3-36.8) Seconds Sodium 136 L (137-145) mmol/L Potassium 4.5 (3.4-5.0) mmol/L Chloride 98 (98-107) mmol/L Carbon Dioxide 30 (22-30) mmol/L Anion Gap 8 (4-12) mmol/L BUN 25 H (7-17) mg/dL Creatinine 1.05 H (0.7-1.0) mg/dL Estim Creat Clear Calc 49 ml/min Estimated GFR 51 L (59 - ) Glucose 89 (65-110) mg/dL Calcium 9.1 (8.4-10.2) mg/dL Magnesium 2.4 H (1.6-2.3) mg/dL Total Bilirubin 0.8 (0.2-1.3) mg/dL AST 36 (14-36) U/L ALT 25 (6-35) U/L Alkaline Phosphatase 43 (38-126) U/L Troponin I 0.024 (0.000-0.034) ng/mL NT-Pro-B Natriuret Pep 400 H Cancelled (19.9-100) pg/mL Total Protein 7.0 (6.3-8.2) g/dL Albumin 4.4 (3.5-5.1) g/dL Lipase 110 (23-300) U/L TSH (Reflex) 5.280 H (0.465-4.68) uIU/mL Free T4 1.71 (0.78-2.19) ng/dL Total T3 1.55 (0.97-1.69) NG/ML <Ole Mcmahan MD - Last Filed: 12/10/24 21:33> Imaging Data Radiologist's impression: Impressions Chest X-Ray 12/10/24 13:38 Impression: No acute pulmonary abnormality. Cardiomegaly. <Ole Mcmahan MD - Last Filed: 12/10/24 21:33> Discharge Plan Discharge Clinical Impression: Heart palpitations <Ijeoma Anand APRN - Last Filed: 12/10/24 13:21> Patient Disposition: Home <Ijeoma Anand APRN - Last Filed: 12/10/24 13:21> Condition: Stable <Ijeoma Anand APRN - Last Filed: 12/10/24 13:21> Instructions: Antibiotic Form, Heart Palpitations (ED) <Ijeoma Anand APRN - Last Filed: 12/10/24 13:21> Additional Instructions: Holter monitor as directed. Have close follow-up with cardiology as outpatient. If you have any worsening symptoms then please call or return to the emergency department. <Ijeoma Anand APRN - Last Filed: 12/10/24 13:21> Patient Language: Amharic <Ijeoma Anand APRN - Last Filed: 12/10/24 13:21> Prescriptions: No Action Caltrate 600 plus D 600 mg-20 mcg (800 unit) tablet,chewable 1 tablet PO DAILY albuterol sulfate [Ventolin HFA] 90 mcg/actuation HFA aerosol inhaler 2 puff inhalation Q6H PRN (Reason: shortness of breath or wheezing) fexofenadine [Sherry Allergy] 60 mg tablet 60 mg PO Q12H aspirin 81 mg tablet 81 mg PO DAILY levothyroxine [Synthroid] 112 mcg tablet 112 mcg PO DAILY mecobalamin (vitamin B12) 5,000 mcg tablet,chewable 5,000 mcg PO WEEKLY guaifenesin [Mucinex] 1,200 mg tablet extended release 12hr 1,200 mg PO BID omega 6-yoh-yda-fish oil [Fish Oil] 1,000 (120-180) mg capsule 2 cap PO BID ketotifen fumarate [Alaway] 0.025 % (0.035 %) drops 1 drp EACH EYE BID Rx Instructions: administer at least 8 hours apart paroxetine HCl 10 mg tablet 10 mg PO DAILY folic acid 800 mcg tablet 0.8 mg PO 3XW Bacillus coagulans [Probiotic (B. coagulans)] PO diclofenac sodium [Arthritis Pain (diclofenac)] 1 % gel 2 g topical TID elgyccbd-ohnvq-opx9-C-eliceo-bor [Aueqdbff-Tbsmo-AOY(with boron)] 298-161-48-1 mg tablet PO Beano 400 unit tablet 400 unit PO DAILY PRN spironolactone 50 mg tablet 50 mg PO DAILY Rx Instructions: 3 hrs after AM Diclofenac terbinafine HCl 250 mg tablet 250 mg PO DAILY coenzyme Q10 [CoQ-10] 100 mg capsule 200 mg PO DAILY triamcinolone acetonide [Nasacort] 55 mcg aerosol,spray 1 spray intranasal BID Rx Instructions: administer into each nostril fluticasone propion-salmeterol [Advair HFA] 230-21 mcg/actuation HFA aerosol inhaler 2 puff inhalation BID mupirocin [Centany] 2 % ointment 1 applic topical QPM Patient Comments: place in nostril ferrous sulfate 325 mg (65 mg iron) tablet 325 mg PO QHS montelukast 10 mg tablet 10 mg PO QHS ascorbate calcium (vitamin C) 500 mg tablet 500 mg PO DAILY docusate sodium [Colace] 100 mg capsule 200 mg PO QHS cevimeline 30 mg capsule 1 cap PO TID thiamine HCl (vitamin B1) 250 mg tablet 250 mg PO DAILY furosemide [Lasix] 40 mg tablet 40 mg PO QAM lactulose 10 gram/15 mL solution 10 g PO QAM diosmin complex no.1 900 mg PO QAM simethicone [Gas-X Extra Strength] 125 mg capsule 125 mg PO DAILY PRN pantoprazole 40 mg tablet,delayed release (DR/EC) 40 mg PO QAM zoledronic wafi-ewwuvzvm-opgco [Reclast] 5 mg/100 mL piggyback 5 ea IV .qyearly cholecalciferol (vitamin D3) 125 mcg (5,000 unit) tablet 125 mcg PO DAILY atorvastatin [Lipitor] 40 mg tablet 40 mg PO QHS Qty: 90 2RF diclofenac potassium 50 mg tablet 50 mg PO DAILY Qty: 90 0RF zolpidem 10 mg tablet 10 mg PO QHS Qty: 90 0RF <Ijeoma Anand APRN - Last Filed: 12/10/24 13:21> Follow-up/Referrals: Sacha Dias MD [Primary Care Provider] - <Ijeoma Anand APRN - Last Filed: 12/10/24 13:21>
[2024-12-10 13:36] LABS: Basophils Absolute Auto 0.1 K/mm3 (0.0-0.1); Eosinophils Absolute Auto 0.2 K/mm3 (0-0.3); Eosinophils Percent Auto 3.2 % (0-4.4); Hematocrit 36.7 % (37.0-47.0); Hemoglobin 11.6 g/dL (12.0-15.0); Immature Granulocyte Absolute 0.01 K/mm3 (0.00-0.031); Immature Granulocyte Percent A 0.2 % (0-0.5); Lymphocytes Absolute Auto 1.23 K/mm3 (0.9-3.2); Lymphocytes Percent Auto 20.8 % (18.3-44.2); Mean Corpuscular HGB Conc 31.6 g/dl (32-36); Mean Corpuscular Volume 98.1 fl (80-100); Mean Platelet Volume 10.8 fl (7.4-10.4); Monocytes Absolute Auto 0.3 K/mm3 (0.1-0.6); Monocytes Percent Auto 5.6 % (2.6-8.5); Neutrophils Absolute Auto 4.1 K/mm3 (1.3-6.7); Neutrophils Percent Auto 69.2 % (45.5-73.1); Platelet Count Result 167 k/mm3 (150-375); Red Blood Count 3.74 M/mm3 (4.2-5.4); Red Cell Distribution Width 14.5 % (11.5-14.5); White Blood Count 5.9 K/mm3 (4.5-10.0)
[2024-12-10 13:48] LABS: INR 1.1; Partial Thromboplastin Time 29.5 Seconds (22.3-36.8)
[2024-12-10 13:55] LABS: Alanine Aminotransferase 25 U/L (6-35); Albumin Level 4.4 g/dL (3.5-5.1); Alkaline Phosphatase 43 U/L (38-126); Anion Gap 8 mmol/L (4-12); Aspartate Amino Transferase 36 U/L (14-36); Bilirubin,Total 0.8 mg/dL (0.2-1.3); Blood Urea Nitrogen 25 mg/dL (7-17); Calcium 9.1 mg/dL (8.4-10.2); Carbon Dioxide 30 mmol/L (22-30); Chloride 98 mmol/L (98-107); Estimated CRCL calculation 49 ml/min; Estimated Glomerular Filt Rate 51; Glucose 89 mg/dL (65-110); Lipase 110 U/L (23-300); Potassium 4.5 mmol/L (3.4-5.0); Sodium 136 mmol/L (137-145)
[2024-12-10 14:07] LABS: NT Pro B Type Natriuretic Pept 400 pg/mL (19.9-100); Troponin I 0.024 ng/mL (0.000-0.034)
[2024-12-10 15:19] LABS: Magnesium 2.4 mg/dL (1.6-2.3)
[2024-12-10 16:34] LABS: Free T4 Free Thyroxine Reflex 1.71 ng/dL (0.78-2.19)
[2024-12-10 17:16] LABS: Total Triiodothyronine (T3) 1.55 NG/ML (0.97-1.69)
--- OUTSIDE RECORDS SUMMARY | 2024-12-11 13:40 | XMS_ITS | CCD ---
Author Name Interface, [id number] lity Address [place] [address] [facility] Address [place] [address] Care Team Providers Care Talent Development Consultant Name Role Phone Ryan Reece Unavailable Unavailable Reason for Visit Functional Status Medications Problems
--- OUTSIDE RECORDS SUMMARY | 2024-12-11 13:40 | XMS_ITS | Patient Health Record ---
[facility] Organization [facility] Address [address] [place] [address] Care Team Providers Care Foreign Language Teacher Name Role Phone DO NOT USE November Primary Care Provider ANNA Velez Unavailable [phone] Allergies Allergen (clinical drug ingredient) Drug/Non Drug [...] for 30 day(s) Active Fish Oil Active [place] 10-325 MG 1 tablet as needed Orally [...] Status Risk Notes Problem Peripheral venous insufficiency (50194467) Venous insufficiency (chronic) (peripheral) (I87.2) Active confirmed Problem 30705374 Venous insufficiency (I87.2) Active confirmed Problem Varicose veins of lower extremity (17519480) 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) Active confirmed Plan Of Treatment No Information Insurance Providers Payer Name Payer Address Payer Phone Subscriber Number Group Number Insured Name Patient Relationship to Insured Coverage Start Date Coverage End Date [employer]ARE OF [place] [address] [place] [phone] [id number] MIRIAN CASIANO Self - patient is the insured 6 [facility] INSUR[facility] [address] [place] [address] [id number] PLAN F MIRIAN CASIANO Self - patient is the insured 6 Medical (General) History Medical History History ICD Code thyroid disease diverticulosis emphysema arthritis anemia asthma heart disease heart murmur Surgical History Surgery Date(Month/Year) eye surgery cholecystectomy foot surgery endovenous ablation knee replacement maxillary antrosomies
--- OUTSIDE RECORDS SUMMARY | 2024-12-11 13:40 | XMS_ITS | CCD ---
Author Name Interface, [id number] lity Address [place] [address] [facility] Address [place] breakthroughs. [place] [address] Care Team Providers Care Grout Worker Name Role Phone Ryan Reece Unavailable Unavailable Reason for Visit Functional Status Medications Problems
--- OUTSIDE RECORDS SUMMARY | 2024-12-11 14:28 | XMS_ITS | CCD ---
Author Name Interface, [id number] lity Address [place] [address] [facility] Address [place] breakthroughs[place] [address] Care Team Providers Care Medical Advisor Name Role Phone Ryan Reece Unavailable Unavailable Reason for Visit Functional Status Medications Problems
--- OUTSIDE RECORDS SUMMARY | 2024-12-11 14:28 | XMS_ITS | CCD ---
Author Name Interface, [id number] lity Address [place] [address] [facility] Address [place] breakthroughs[place] [address] Care Team Providers Care Pressing Machine Tender Name Role Phone Ryan Reece Unavailable Unavailable Reason for Visit Functional Status Medications Problems
== END 2024-12-10 16:47 | disposition home or self-care (01) ==
PROVIDERS: Emergency Medicine; Emergency Provider Emergency Medicine; PCP Family Medicine
DX: R00.2 Palpitations (principal); I50.9 Heart failure, unspecified; I87.2 Venous insufficiency (chronic) (peripheral); I25.10 Atherosclerotic heart disease of native coronary artery without angina pectoris; J44.9 Chronic obstructive pulmonary disease, unspecified; E53.8 Deficiency of other specified B group vitamins; K58.1 Irritable bowel syndrome with constipation; E78.5 Hyperlipidemia, unspecified; E03.9 Hypothyroidism, unspecified; G47.33 Obstructive sleep apnea (adult) (pediatric); M19.90 Unspecified osteoarthritis, unspecified site; M81.0 Age-related osteoporosis without current pathological fracture; Z96.611 Presence of right artificial shoulder joint; Z96.653 Presence of artificial knee joint, bilateral; Z90.49 Acquired absence of other specified parts of digestive tract; Z79.82 Long term (current) use of aspirin; Z79.899 Other long term (current) drug therapy; I44.0 Atrioventricular block, first degree
CPT/HCPCS: 36415; 71046; 80053; 83690; 83735; 83880; 84439; 84443; 84480; 84484; 85025; 85610; 85730; 93005; 93242; 99284

== ENCOUNTER 2025-01-21 06:54 | Outpatient (CLI) | payer MEDICARE, SELFPAY ==
--- OUTSIDE RECORDS SUMMARY | 2025-01-21 06:59 | XMS_ITS | Patient Health Record ---
Author Organization [facility] Address [address] [place] [address] Care Team Providers Care Plunger Shovel Operator Name Role Phone DO NOT USE November Primary Care Provider ANNA Velez Unavailable [phone] Allergies Allergen (clinical drug ingredient) Drug/Non Drug [...] for 30 day(s) Active Fish Oil Active Salix 10-325 MG 1 tablet as needed Orally [...] Status Risk Notes Problem Peripheral venous insufficiency (14215676) Venous insufficiency (chronic) (peripheral) (I87.2) Active confirmed Problem [id number] Venous insufficiency (I87.2) Active confirmed Problem Varicose veins of lower extremity (97628476) 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) Active confirmed Plan Of Treatment No Information Insurance Providers Payer Name Payer Address Payer Phone Subscriber Number Group Number Insured Name Patient Relationship to Insured Coverage Start Date Coverage End Date [place]ARE OF [place] [address] [place] [phone] [id number] MIRIAN CASIANO Self - patient is the insured 6 [facility] INS[facility] [address] [place] [address] [id number] PLAN F MIRIAN CASIANO Self - patient is the insured 6 Medical (General) History Medical History History ICD Code thyroid disease diverticulosis emphysema arthritis anemia asthma heart disease heart murmur Surgical History Surgery Date(Month/Year) eye surgery cholecystectomy foot surgery endovenous ablation knee replacement maxillary antrosomies
--- OUTSIDE RECORDS SUMMARY | 2025-01-21 06:59 | XMS_ITS | CCD ---
Author Name Interface, [id number] lity Address [place] [address] Organization [facility] Address [address] [address] Care Team Providers Care Waitstaff Captain Name Role Phone Ryan Reece Unavailable Unavailable [...] PO 1.0 TABLET(S) daily 2013 active 02/22 [place]-3 Fatty Acids Oral PO 1.0 CAPSULE(S) daily [...] TABLET(S) daily 2013 active 02/22 Fluticasone Nasal [place] 50 mcg/actuation Inhalation route 50.0 MCG daily [...]
--- OUTSIDE RECORDS SUMMARY | 2025-01-21 06:59 | XMS_ITS | CCD ---
Author Name Interface, [id number] lity Address [address] [address] [facility] Address [address] [address] Care Team Providers Care Brood Station Manager Name Role Phone Ryan Reece Unavailable Unavailable Reason for Visit Functional Status Medications Problems
[2025-01-21 07:28] LABS: Basophils Absolute Auto 0.1 K/mm3 (0.0-0.1); Eosinophils Absolute Auto 0.2 K/mm3 (0-0.3); Eosinophils Percent Auto 3.1 % (0-4.4); Hematocrit 34.1 % (37.0-47.0); Hemoglobin 10.9 g/dL (12.0-15.0); Immature Granulocyte Absolute 0.02 K/mm3 (0.00-0.031); Immature Granulocyte Percent A 0.4 % (0-0.5); Lymphocytes Absolute Auto 1.39 K/mm3 (0.9-3.2); Lymphocytes Percent Auto 28.7 % (18.3-44.2); Mean Corpuscular Hemoglobin 31.2 pg (26-34); Mean Corpuscular Volume 97.7 fl (80-100); Mean Platelet Volume 11.8 fl (7.4-10.4); Monocytes Absolute Auto 0.3 K/mm3 (0.1-0.6); Neutrophils Percent Auto 60.8 % (45.5-73.1); Platelet Count Result 138 k/mm3 (150-375); Red Blood Count 3.49 M/mm3 (4.2-5.4); Red Cell Distribution Width 14.5 % (11.5-14.5); White Blood Count 4.9 K/mm3 (4.5-10.0)
[2025-01-21 07:37] LABS: Alanine Aminotransferase 24 U/L (6-35); Alkaline Phosphatase 37 U/L (38-126); Anion Gap 4 mmol/L (4-12); Aspartate Amino Transferase 34 U/L (14-36); Bilirubin,Total 0.4 mg/dL (0.2-1.3); Blood Urea Nitrogen 23 mg/dL (7-17); Calcium 9.5 mg/dL (8.4-10.2); Carbon Dioxide 32 mmol/L (22-30); Chloride 103 mmol/L (98-107); Cholesterol 117 mg/dL (0-200); Estimated Glomerular Filt Rate 51; Glucose 94 mg/dL (65-110); HDL Direct 56 mg/dL; Magnesium 2.2 mg/dL (1.6-2.3); Potassium 4.1 mmol/L (3.4-5.0); Sodium 139 mmol/L (137-145); Total Protein 6.6 g/dL (6.3-8.2); Triglycerides 44 mg/dL (<150)
[2025-01-21 07:46] LABS: Iron 51 ug/dL (37-170)
[2025-01-21 07:48] LABS: LDL Cholesterol Direct 42 mg/dL
[2025-01-21 07:56] LABS: Hemoglobin A1C 5.3 % (<5.7); Percent Iron Saturation 17 % (20-50)
[2025-01-21 09:03] LABS: Folic Acid 11.2 ng/mL (2.76->20)
[2025-01-21 09:13] LABS: Vitamin D 25 Hydroxy 48.8 ng/mL
[2025-01-21 10:21] LABS: Free T4 Free Thyroxine Reflex 1.39 ng/dL (0.78-2.19)
[2025-01-21 11:35] LABS: Total Triiodothyronine (T3) 0.72 NG/ML (0.82-1.58)
== END 2025-01-21 06:55 | disposition home or self-care (01) ==
PROVIDERS: PCP Family Medicine; Visit Provider Family Medicine
DX: D64.9 Anemia, unspecified (principal); I11.0 Hypertensive heart disease with heart failure; I50.9 Heart failure, unspecified; E55.9 Vitamin D deficiency, unspecified; F32.A Depression, unspecified; R73.9 Hyperglycemia, unspecified; E78.5 Hyperlipidemia, unspecified
CPT/HCPCS: 36415; 80053; 80061; 82306; 82607; 82728; 82746; 83036; 83540; 83550; 83735; 84439; 84443; 84480; 85025; 85055

== ENCOUNTER 2025-02-21 11:12 | Outpatient (CLI) | payer MEDICARE, SELFPAY ==
--- OUTSIDE RECORDS SUMMARY | 2025-02-21 11:18 | XMS_ITS | CCD ---
Author Name Interface, [id number] lity Address [place] [address] [facility] Address [place] [address] Care Team Providers Care Campus Monitor Name Role Phone Chevy SMITH, Ryan Unavailable Unavailable Allergies and Adverse Reactions Medication/Group Name Reaction Severity Date Macrolide Antibiotics 2009 ketoprofen 02/05/2010 NSAIDS (Non-Steroidal Anti-Inflammatory Drug) 02/05/2010 Quinolones 02/05/2010 benzoin 02/05/2010 Penicillins 02/05/2010 erythromycin base 02/05/2010 Cephalosporins 02/05/2010 Salicylates 02/05/2010 ciprofloxacin HCl 02/05/2010 Reason for Visit Functional Status Date Name Score 02/05/2010 Karnofsky performance status 90 02/18/2013 Karnofsky performance status 90 02/21/2011 Karnofsky performance status 90 02/22/2014 Karnofsky performance status 90 03/05/2012 Karnofsky performance status 90 03/26/2010 Karnofsky performance status 90 07/31/2010 Karnofsky performance status 90 Medications Date Name Route Dose Frequency Instructions Start Date End Date Status 02/22 Thiamine Oral PO 1.0 TABLET(S) daily 2013 active 02/22 [place]-3 Fatty Acids Oral PO 1.0 CAPSULE(S) daily [...] TABLET(S) daily 2013 active 02/22 Fluticasone Nasal [place] 50 mcg/actuation Inhalation route 50.0 MCG daily [...] 2012 active Problems Diagnosis Status Date of Diagnosis Resolution Date Hypothyroidism (disorder) Active Body mass index [BMI] 45.0-49.9, adult Inactive Vitamin D deficiency (disorder) Active Iron deficiency anemia (disorder) Active 010 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
--- OUTSIDE RECORDS SUMMARY | 2025-02-21 11:18 | XMS_ITS | Patient Health Record ---
Author Organization [facility] Address [address] [place] [address] Care Team Providers Care Hogshead Wrecker Name Role Phone DO NOT USE November Primary Care Provider ANNA Velez Unavailable [phone] Allergies Allergen (clinical drug ingredient) Drug/Non Drug [...] 1 capsule Orally Th ree times a day; Duration: 30 day(s) Active Fish Oil Active [place] 10-325 MG 1 tablet as needed Orally every 6 hrs Active Colace 100 MG 1 capsule as needed Orally Once a day Active Aspirin 81 MG 1 tablet Orally Once a day Active Vitamin B12 Active Levothroid Active Systane Active Vitamin C ER 500 MG 1 capsule Orally Onc e a day; Duration: 30 day(s) Active Glucosamine Chondroitin Complx - Orally Active Singulair 10 MG 1 tablet Orally Once a day; Duration: 30 day(s) Active Zolpidem Tartrate 10 MG 1 tablet at bedt shayla as needed Orally Once a day Active Simvastatin 20 MG 1 tablet in the even ing Orally Once a day Active Nasacort Allergy 24HR 55 MCG/ACT 1 spray in each nostril Nasally Once a day Active Cyclobenzaprine HCl 10 MG Oral; Duration: 14 Active Vitamin C 500 MG as directed Orally Active Caltrate 600+D 600-800 MG-UNIT 1 tablet with a meal Orally Once a day Active Paxil 10 MG 1 tablet in the morn ing Orally Once a day; Duration: 30 day(s) Active CoQ10 200 MG 1 capsule with a asad l Orally Once a day Active Albuterol Sulfate HFA 108 (90 Base) MCG/ACT 2 puffs as needed Inhalation every 6 hrs Active Iron 325 (65 Fe) MG 1 tablet Orally Once a day; Duration: 30 day(s) Active Imitrex 100 MG 1 tablet as needed Orally Twice a day Active Vitamin D3 5000 UNIT 1 tablet Orally Onc e a day Active Diclofenac Potassium 50 MG Oral; Duration: 30 Active Zocor 20 MG 1 tablet [...] MG 1 tablet Orall y Once a day; Duration: 30 day(s) Active Synthroid 150 MCG 1 tablet on an empty stomach in the morning Orally Once a day Active Montelukast Sodium 10 MG 1 tablet Orally Once a day; Duration: 30 day(s) Active Mucinex Active Social History Tobacco Use: Social History Observation Description Date Details (start date - stop date) Former Smoker NA - NA Tobacco Use/Smoking Question Answer Notes You are a former smoker Problems Problem Type SNOMED Code ICD Code Onset Dates Problem Status W/U Status Risk Notes Problem Venous insufficiency (chronic) (peripheral) (I87.2) Active confirmed Problem Venous insufficiency (I87.2) Active confirmed Problem Varicose veins of lower extremity (10361102) 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) Active confirmed Plan Of Treatment No Information Insurance Providers Payer Name Payer Address Payer Phone Subscriber Number Group Number Insured Name Patient Relationship to Insured Coverage Start Date Coverage End Date [place]ARE [place] [address] [place] [phone] [id number] MIRIAN CASIANO Self - patient is the insured 6 [facility] [address] [place] [address] [id number] PLAN F MIRIAN CASIANO Self - patient is the insured 6 Medical (General) History Medical History History ICD Code thyroid disease diverticulosis emphysema arthritis anemia asthma heart disease heart murmur Surgical History Surgery Date(Month/Year) eye surgery cholecystectomy foot surgery endovenous ablation knee replacement maxillary antrosomies
--- OUTSIDE RECORDS SUMMARY | 2025-02-21 11:18 | XMS_ITS | CCD ---
Author Name Interface, [id number] lity Address [place] [address] [facility] Address [address] [address] Care Team Providers Care Clinical Applications Manager Name Role Phone Chevy SMITH, Ryan Unavailable [...] PO 1.0 TABLET(S) daily 2013 active 02/22 [place]-3 Fatty Acids Oral PO 1.0 CAPSULE(S) daily [...] TABLET(S) daily 2013 active 02/22 Fluticasone Nasal [place] 50 mcg/actuation Inhalation route 50.0 MCG daily [...]
== END 2025-02-21 11:13 | disposition home or self-care (01) ==
LOC: ANHAUDIO 11:13
PROVIDERS: PCP Family Medicine; Visit Provider Otolaryngology Otolaryngology/Facial Plastic Surgery
DX: H72.91 Unspecified perforation of tympanic membrane, right ear (principal); H93.11 Tinnitus, right ear; H90.71 Mixed conductive and sensorineural hearing loss, unilateral, right ear, with unrestricted hearing on the contralateral side; H74.8X2 Other specified disorders of left middle ear and mastoid; Z96.22 Myringotomy tube(s) status; Z97.4 Presence of external hearing-aid
CPT/HCPCS: 92557; 92567

== ENCOUNTER 2025-03-01 11:03 | Outpatient (CLI) | payer MEDICARE, SELFPAY ==
--- OUTSIDE RECORDS SUMMARY | 2025-03-01 11:09 | XMS_ITS | CCD ---
Author Name Interface, [id number] lity Address [place] [address] [facility] Address [place] [address] Care Team Providers Care Drying Can Worker Name Role Phone Chevy SMITH, Ryan Unavailable [...] Instructions Start Date End Date Status 02/22 Pantoprazole (Sodium) Oral Delayed Release PO 1.0 TABLET(S) daily 2013 active 02/22 Thiamine Oral PO 1.0 TABLET(S) daily 2013 active 02/22 [place]-3 Fatty Acids Oral PO 1.0 CAPSULE(S) daily [...] PO 1.0 TABLET(S) daily 2013 active 02/22 Dextrin Oral Powder GRAM as directed 2013 active 02/22 Fluticasone Nasal [place] 50 mcg/actuation Inhalation route 50.0 MCG daily [...] PO 10.0 MG daily 2013 active 02/22 Diclofenac Oral Delayed Release [...]
--- OUTSIDE RECORDS SUMMARY | 2025-03-01 11:09 | XMS_ITS | Patient Health Record ---
Author Organization [facility] Address 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) Active confirmed Plan Of Treatment No Information Insurance Providers Payer Name Payer Address Payer Phone Subscriber Number Group Number Insured Name Patient Relationship to Insured Coverage Start Date Coverage End Date [place]ARE [place] [address] [place] [phone] [id number] MIRIAN CASIANO Self - patient is the insured 6 [facility] [address] [place] [address] [id number] PLAN F MIRIAN CASIAON Self - patient is the insured 6 Medical (General) History Medical History History ICD Code thyroid disease diverticulosis emphysema arthritis anemia asthma heart disease heart murmur Surgical History Surgery Date(Month/Year) eye surgery cholecystectomy foot surgery endovenous ablation knee replacement maxillary antrosomies
--- OUTSIDE RECORDS SUMMARY | 2025-03-01 11:09 | XMS_ITS | CCD ---
Author Name Interface, [id number] lity Address [address] [place] [address] [facility] Address [address] [address] Care Team Providers Care Chuck Tender Name Role Phone Chevy SMITH, Ryan Unavailable Unavailable Allergies and Adverse Reactions Reason for Visit Functional Status Medications Problems
[2025-03-01 11:56] LABS: Hematocrit 35.8 % (37.0-47.0); Hemoglobin 11.6 g/dL (12.0-15.0); Immature Granulocyte Percent A 0.5 % (0-0.5); Lymphocytes Absolute Auto 1.06 K/mm3 (0.9-3.2); Mean Corpuscular HGB Conc 32.4 g/dl (32-36); Mean Corpuscular Hemoglobin 30.9 pg (26-34); Mean Corpuscular Volume 95.5 fl (80-100); Nucleated Red Blood Cells Absolute Auto 0.000 K/mm3 (0.0-0.012); Nucleated Red Blood Cells Perc 0.0 % (0.0-0.2); Platelet Count Result 150 k/mm3 (150-375); Red Blood Count 3.75 M/mm3 (4.2-5.4); White Blood Count 4.4 K/mm3 (4.5-10.0)
[2025-03-01 12:15] LABS: Add Urine Microscopic? YES; Appearance Urine Clear (Clear); Glucose Urine UA Negative (Negative); Leukocyte Esterase Ur Trace LEU/UL (Negative); Nitrate Urine Negative (Negative); Specific Grav Ur 1.009 (1.001-1.035)
[2025-03-01 12:18] LABS: Iron 90 ug/dL (37-170)
[2025-03-01 12:20] LABS: Alanine Aminotransferase 26 U/L (6-35); Albumin Level 4.4 g/dL (3.5-5.1); Alkaline Phosphatase 45 U/L (38-126); Anion Gap 7 mmol/L (4-12); Aspartate Amino Transferase 40 U/L (14-36); Bilirubin,Total 0.6 mg/dL (0.2-1.3); Blood Urea Nitrogen 26 mg/dL (7-17); CRP < 0.5 mg/dL (<1.0); Calcium 9.6 mg/dL (8.4-10.2); Carbon Dioxide 31 mmol/L (22-30); Chloride 99 mmol/L (98-107); Estimated Glomerular Filt Rate 50; Glucose 87 mg/dL (65-110); Potassium 4.2 mmol/L (3.4-5.0); Sodium 137 mmol/L (137-145); Total Protein 7.2 g/dL (6.3-8.2)
[2025-03-01 12:27] LABS: Percent Iron Saturation 30 % (20-50)
[2025-03-01 12:55] LABS: Thyroid Stimulating Hormone Reflex 3.490 uIU/mL (0.465-4.68)
[2025-03-01 12:59] LABS: Ferritin 224.00 ng/mL (11.1-264)
[2025-03-02 15:09] LABS: Beta-2 Glycoprotein I Ab, IgG <9 (0-20)
[2025-03-02 16:08] LABS: Anticardiolipin Ab,IgG,Qn 45 GPL U/mL (0-14); Anticardiolipin Ab,IgM,Qn <9 MPL U/mL (0-12)
[2025-03-03 15:09] LABS: Saccharomyces cerevisiae, IgA <20.0 Units (0.0-24.9); Saccharomyces cerevisiae, IgG 30.6 Units (0.0-24.9)
== END 2025-03-01 11:04 | disposition home or self-care (01) ==
PROVIDERS: PCP Family Medicine; Referring Provider Internal Medicine; Visit Provider Podiatrist Foot & Ankle Surgery
DX: B35.1 Tinea unguium (principal); M35.00 Sjogren syndrome, unspecified; D64.9 Anemia, unspecified; I10 Essential (primary) hypertension; N28.9 Disorder of kidney and ureter, unspecified; E03.9 Hypothyroidism, unspecified; Z79.899 Other long term (current) drug therapy
CPT/HCPCS: 36415; 80053; 81001; 82728; 83540; 83550; 84100; 84443; 85025; 85652; 86037; 86140; 86146; 86147; 86235; 86671

== ENCOUNTER 2025-05-04 12:40 | Outpatient (CLI) | payer MEDICARE, SELFPAY ==
--- OUTSIDE RECORDS SUMMARY | 2025-05-04 12:46 | XMS_ITS | Patient Health Record ---
[facility] Address [address] [place] [address] Care Team Providers Care Can Filling Machine Operator Name Role Phone DO NOT USE November Primary Care Provider ANNA Velez Unavailable [phone] Allergies Allergen (clinical drug ingredient) Drug/Non Drug [...] Duration: 30 day(s) Active Fish Oil Active [place] 10-325 MG 1 tablet as needed Orally [...] Status Risk Notes Problem Peripheral venous insufficiency (52159173) Venous insufficiency (chronic) (peripheral) (I87.2) Active confirmed Problem Venous insufficiency of leg (disorder) (457633053) Venous insufficiency (I87.2) Active confirmed Problem Varicose veins of lower extremity (77271399) 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) Active confirmed Plan Of Treatment No Information Insurance Providers Payer Name Payer Address Payer Phone Subscriber Number Group Number Insured Name Patient Relationship to Insured Coverage Start Date Coverage End Date [employer]ARE OF [place] [address] [place] [phone] [id number] MIRIAN CASIANO Self - patient is the insured 6 [facility] [address] [place] [address] [id number] PLAN F MIRIAN CASIANO Self - patient is the insured 6 Medical (General) History Medical History History ICD Code thyroid disease diverticulosis emphysema arthritis anemia asthma heart disease heart murmur Surgical History Surgery Date(Month/Year) eye surgery cholecystectomy foot surgery endovenous ablation knee replacement maxillary antrosomies
[2025-05-04 13:20] LABS: Hematocrit 35.8 % (37.0-47.0); Hemoglobin 11.5 g/dL (12.0-15.0); Immature Granulocyte Percent A 0.4 % (0-0.5); Lymphocytes Absolute Auto 1.16 K/mm3 (0.9-3.2); Mean Corpuscular HGB Conc 32.1 g/dl (32-36); Mean Corpuscular Hemoglobin 30.8 pg (26-34); Mean Corpuscular Volume 96.0 fl (80-100); Nucleated Red Blood Cells Absolute Auto 0.000 K/mm3 (0.0-0.012); Nucleated Red Blood Cells Perc 0.0 % (0.0-0.2); Platelet Count Result 149 k/mm3 (150-375); Red Blood Count 3.73 M/mm3 (4.2-5.4); White Blood Count 4.6 K/mm3 (4.5-10.0)
[2025-05-04 13:38] LABS: Add Urine Microscopic? YES; Appearance Urine Clear (Clear); Glucose Urine UA Negative (Negative); Leukocyte Esterase Ur Trace LEU/UL (Negative); Need Manual Microscopic Reviewed; Nitrate Urine Negative (Negative); Specific Grav Ur 1.010 (1.001-1.035)
[2025-05-04 13:43] LABS: Alanine Aminotransferase 26 U/L (6-35); Albumin Level 4.1 g/dL (3.5-5.1); Alkaline Phosphatase 52 U/L (38-126); Anion Gap 5 mmol/L (4-12); Aspartate Amino Transferase 37 U/L (14-36); Bilirubin,Total 0.5 mg/dL (0.2-1.3); Blood Urea Nitrogen 30 mg/dL (7-17); CRP 0.9 mg/dL (<1.0); Calcium 9.1 mg/dL (8.4-10.2); Carbon Dioxide 30 mmol/L (22-30); Chloride 100 mmol/L (98-107); Estimated Glomerular Filt Rate 49; Glucose 84 mg/dL (65-110); Potassium 3.8 mmol/L (3.4-5.0); Sodium 135 mmol/L (137-145); Total Protein 6.9 g/dL (6.3-8.2)
== END 2025-05-04 12:41 | disposition home or self-care (01) ==
PROVIDERS: PCP Family Medicine; Visit Provider Internal Medicine
DX: M06.9 Rheumatoid arthritis, unspecified (principal); Z79.899 Other long term (current) drug therapy
CPT/HCPCS: 36415; 80053; 81001; 84100; 85025; 85652; 86140

== ENCOUNTER 2025-05-12 08:28 | Outpatient (CLI) | payer MEDICARE, SELFPAY ==
--- NOTE | ~2025-05-12 | MM_ITS ---
EXAMINATION: MM screening kathie BI w [facility] HISTORY: Screening TECHNIQUE: Craniocaudal and mediolateral oblique 3-D tomosynthesis images were obtained and synthetic 2-D images were generated. CAD analysis was submitted and interpreted. COMPARISON: No prior mammogram is available for comparison at this institution. BREAST PARENCHYMAL COMPOSITION: Not dense: There are scattered areas of fibroglandular density. FINDINGS: There is no evidence of suspicious mass, calcification, or architectural distortion to suggest malignancy in either breast. IMPRESSION: 1. No mammographic evidence of malignancy. 2. Recommend routine screening mammography in one year. BI-RADS Category 1: Negative Reviewed, dictated and finalized at location B.
--- OUTSIDE RECORDS SUMMARY | 2025-05-12 08:41 | XMS_ITS | Patient Health Record ---
Author Organization [facility] Address [address] [place] [address] Care Team Providers Care Buttermaker Name Role Phone DO NOT USE November Primary Care Provider ANNA Velez Unavailable [phone] Allergies Allergen (clinical drug ingredient) Drug/Non Drug [...] Duration: 30 day(s) Active Fish Oil Active [place] 10-325 MG 1 tablet as needed Orally [...] Status Risk Notes Problem Peripheral venous insufficiency (90339439) Venous insufficiency (chronic) (peripheral) (I87.2) Active confirmed Problem Venous insufficiency of leg (disorder) (199019127) Venous insufficiency (I87.2) Active confirmed Problem Varicose veins of lower extremity (59184491) 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) Active confirmed Plan Of Treatment No Information Insurance Providers Payer Name Payer Address Payer Phone Subscriber Number Group Number Insured Name Patient Relationship to Insured Coverage Start Date Coverage End Date [place]ARE [place] [address] [place] [phone] [id number] MIRIAN CASIANO Self - patient is the insured 6 [facility] [address] [place] [address] [phone] [id number] PLAN F MIRIAN CASIANO Self - patient is the insured 6 Medical (General) History Medical History History ICD Code thyroid disease diverticulosis emphysema arthritis anemia asthma heart disease heart murmur Surgical History Surgery Date(Month/Year) eye surgery cholecystectomy foot surgery endovenous ablation knee replacement maxillary antrosomies
== END 2025-05-12 08:29 | disposition home or self-care (01) ==
LOC: ANHFOHIMG 08:31
PROVIDERS: PCP Family Medicine; Visit Provider Family Medicine
DX: Z12.31 Encounter for screening mammogram for malignant neoplasm of breast (principal)
CPT/HCPCS: 77063; 77067

== ENCOUNTER 2025-07-25 13:08 | Outpatient (CLI) | payer MEDICARE, SELFPAY ==
--- OUTSIDE RECORDS SUMMARY | 2024-02-17 03:00 | XMS_ITS ---
Author Organization [facility] Address [address] [place] [address] Care Team Providers Care Topology Professor Name Role Phone November Primary Care Provider Nathan Brink Unavailable [phone] Migration, Provider Unavailable Unavailable REASON FOR VISIT EMR-Sai Vital Signs Blood pressure systolic 116 mm Hg 02/17/20 24 Blood pressure diastolic 62 mm Hg 024 Heart Rate 62 /min 02/17/2024 Height 63.00 in 02/17/2024 Weight 231.60 lbs 02/17/2024 BMI 41 kg/m2 02/17/2024 Oximetry 99 % 02/17/2024 Height-cm 160.02 cm 02/17/2024 Weight-kg 105.05 kg 02/17/2024 Encounters Encounter Location Date Provider Diagnosis Migrated_Facility 0 0 02/17/2024 Provider Migration Hypothyroidism, unspecified E03.9 ; Coronary atherosclerosis due to calcified coronary lesion I25.84 ; Palpitations R00.2 ; Cardiac murmur, unspecified R01.1 ; Pure hypercholesterolemia, unspecified E78.00 and Chronic diastolic (congestive) heart failure I50.32 Assessments Encounter Date Diagnosis (ICD Code) Assessment Notes Treatment Notes Treatment Clinical Notes Section Notes 02/17/2024 Hypothyroidism, unspecified (ICD-10 - E03.9) As per PCP 02/17/2024 Coronary atherosclerosis due to calcified coronary lesion (ICD-10 - I25.84) Coronary calcifications on CT in hospital -- Lexiscan MPI stress reported as low-risk in hospital notes though reportedly had some reversible perfusion defects in areas where we commonly see artifact/attenuation on such studiesDyspnea better with diuresis, she has had no recurrent shoulder burning sensationIf any recurrent symptoms we will pursue LHCContinue statin therapy, aspirin reasonable given risk factors 02/17/2024 Palpitations (ICD-10 - R00.2) No recurrenceExpectant monitoring 02/17/2024 Cardiac murmur, unspecified (ICD-10 - R01.1) No significant valve diseaseLikely flow murmur 02/17/2024 Pure hypercholesterolem ia, unspecified (ICD-10 - E78.00) 10-year ASCVD risk is 7.2%, borderline, she is on moderate intensity statin, and tolerating wellNo specific LDL goals in her case, no ASCVD event that I'm aware of 02/17/2024 Chronic diastolic (congestive) heart failure (ICD-10 - I50.32) Has had good improvement in weight and leg swelling and breathing with diureticsAppears she has some lymphedema underlying, contributing to leg edemaShe is fairly happy with where things are volume-wiseContinue spironolactone 50mg daily, furosemide 40mg daily -- she may double the furosemide for 3-5 days if swelling worsensIf legs start to get more bothersome, lymphedema PT as outpatient might be reasonableHer HR is on the low end, and she has dyspnea at baseline and is a former smoker - worry a beta leela would cause bradycardia, more fatigue, worsened dyspnea (has baseline long-standing fatigue and dyspnea) Plan Of Treatment No Information History and Physical Notes * HPI (History of Present Illness) Category Sub-Category Detail Notes Category Not es General 74F here in follow-up of chronic diastolic HF, coronary calcification, palpitations. Also has HLD and hypothyroidism. Has lost 10-15 pounds since last visit. Hasn't had swelling in feet since being on diuretics. Uses SCDs at night. Still varicose veins. Doesn't like sitting with legs elevated during day. Has been bruising more. Moved aspirin to TIW. Cardiac history 07/2023 - Lexiscan MPI stress - normal EF, reversible defects mid-apical anterior wall and inferior wall 07/2023 - echo EF 55-60, mild LAE, mild TR, RVSP 36 mmHg 10/2016 - echo EF normal, mild LVH 06/2009 - dobutamine stress echo negative Progress Notes * TIMOTEO CASIANO:1950 (75 yo F)Acc No.[id number]:02/17/2024 Patient: MIRIAN QUIROS Provider: Justin Medellin :1950 A ge:74 Y S ex:Female Date:02/17/2024 Address:[address] [place] [address] [address], [id number] Pcp:November Subjective: * Chief Complaints: * E MR-Sai * HPI: G eneral: 74F here in follow-up of chronic diastolic HF, coronary calcification, palpitations. Also has HLD and hypothyroidism. Has lost 10-15 pounds since last visit. Hasn't had swelling in feet since being on diuretics. Uses SCDs at night. Still varicose veins. Doesn't like sitting with legs elevated during day. Has been bruising more. Moved aspirin to TIW. Cardiac history 07/2023 - Lexiscan MPI stress - normal EF, reversible defects mid-apical anterior wall and inferior wall 07/2023 - echo EF 55-60, mild LAE, mild TR, RVSP 36 mmHg 10/2016 - echo EF normal, mild LVH 06/2009 - dobutamine stress echo negative. Objective: * Vitals: H t: 63.00 in, Wt: 231.60 lbs, HR: 62 /min, Oxygen sat %: 99 %, BP: 116/62 mm Hg, BMI: 41 Index, Wt-k.05 kg, Ht-cm: 160.02 cm. Assessment: * Assessment: 1. H ypothyroidism, unspecified - E03.9 N otes :As per PCP 2 . C oronary atherosclerosis due to calcified coronary lesion - I25.84 ? N otes :Coronary calcifications on CT in hospital -- Lexiscan MPI stress reported as low-risk in hospital notes though reportedly had some reversible perfusion defects in areas where we commonly see artifact/attenuation on such studiesDyspnea better with diuresis, she has had no recurrent shoulder burning sensationIf any recurrent symptoms we will pursue LHCContinue statin therapy, aspirin reasonable given risk factors 3 . P alpitations - R00.2 N otes :No recurrenceExpectant monitoring 4 . C ardiac murmur, unspecified - R01.1 N otes :No significant valve diseaseLikely flow murmur 5 . P ure hypercholesterolemia, unspecified - E78.00 N otes :10-year ASCVD risk is 7.2%, borderline, she is on moderate intensity statin, and tolerating wellNo specific LDL goals in her case, no ASCVD event that I'm aware of 6 . C hronic diastolic (congestive) heart failure - I50.32 N otes :Has had good improvement in weight and leg swelling and breathing with diureticsAppears she has some lymphedema underlying, contributing to leg edemaShe is fairly happy with where things are volume-wiseContinue spironolactone 50mg daily, furosemide 40mg daily -- she may double the furosemide for 3-5 days if swelling worsensIf legs start to get more bothersome, lymphedema PT as outpatient might be reasonableHer HR is on the low end, and she has dyspnea at baseline and is a former smoker - worry a beta leela would cause bradycardia, more fatigue, worsened dyspnea (has baseline long-standing fatigue and dyspnea) * Electronic signature of Prov ider Migration on 07/25/2025 at 02:03 PM SALMON TROLL FISHER Sign off status: Pending * Provider: Justin deleon Migration Date: 0 02/17/2024 Generated for Bharti sorenson/Karri/Nadya on: 09/25/2024 02:03 PM SALMON TROLL FISHER
--- OUTSIDE RECORDS SUMMARY | 2024-02-17 03:30 | XMS_ITS ---
Author Organization [facility] Address [address] [place] [address] Care Team Providers Care Home Care Manager Rn Name Role Phone November Primary Care Provider Unavailabl Nathan Bolanos Unavailable [phone] Migration, Provider Unavailable Unavailable Encounters Encounter Location Date Provider Diagnosis [facility] [address] [facility] [address] [place] [address] 02/17/2024 Provider Migration Plan Of Treatment No Information Progress Notes * MIRIAN CASIANODOB:1950 (75 yo F)Acc No.[id number]:02/17/2024 Patient: MIRIAN QUIROS Provider: Justin deleon Migration :1950 A ge:74 Y S ex:Female Date:02/17/2024 Address:[address] [id number] Pcp:November * Electronic signature of Prov ider Migration on 07/25/2025 at 02:03 PM HAND BOOKED FOLDER AND STITCHER Sign off status: Pending * Provider: Justin deleon Migration Date: 0 02/17/2024 Generated for Bharti sorenson/Karri/eTransmitting on: 09/25/2024 02:03 PM HAND BOOKED FOLDER AND STITCHER
--- OUTSIDE RECORDS SUMMARY | 2024-08-02 03:00 | XMS_ITS ---
Author Organization [facility] Address [address] [place] [address] Care Team Providers Care Night Filler Name Role Phone November Primary Care Provider UnavailNathan Victoria Unavailable [phone] Migration, Provider Unavailable Unavailable REASON FOR VISIT TelEnc Encounters Encounter Location Date Provider Diagnosis [facility] 08/02/2024 Provider Migr ation Plan Of Treatment No Information Progress Notes * STEPHENIEMIRIANDOB:1950 (75 yo F)Acc No.[id number]:08/02/2024 Patient: MIRIAN QUIROS :1950 A ge:74 Y S ex:Female Address:[address] [place], [address] Subjective: * Chief Complaints: * T elEnc * * Date:
--- OUTSIDE RECORDS SUMMARY | 2025-03-27 03:00 | XMS_ITS ---
Author Organization [employer] Address [address] [facility] [facility] [address] [place] [address] Care Team Providers Care Revenue Audit Clerk Name Role Phone November Primary Care Provider Nathan Brink Unavailable [phone] Migration, Provider Unavailable Unavailable Allergies Allergen (clinical drug ingredient) Drug/Non Drug Allergy documented on EMR Reaction Allergy Type Onset Date Status ADHESIVE (uncoded) Itching Allergy 02/17/2024 Active Benzoin Rash Drug Allergy 02/17/2024 Active ciprofloxacin Cipro Nausea Drug Allergy 02/17/2024 Ac tive ketoprofen Ketoprofen Rash Drug Allergy 02/17/2024 Acti ve Medicinal cephalosporin and acting as antibacterial agent (FN) Cephalosporins Itching Drug Allergy 02/17/2024 Active Substance with penicillin structure and antibacterial mechanism of action (substance) Penicillins Rash, Itching, Hives Drug Allergy 02/17/2024 Active REASON FOR VISIT EMR-Sai Medications Medication SIG (Take, Route, Frequency, Duration) Notes Start Date End Date Status PANTOPRAZOLE SOD DR 40 MG TAB TAKE 1 TABLET BY MOUTH TWICE A DAY *Reorder from [facility] for eRx and Interaction Alerts* 09/17/2023 Active ALBUTEROL HFA 90 MCG INHALER TAKE 2 PUFFS BY MOUTH EVERY 6 HOURS NEEDED FOR WHEEZE OR SHORTNESS OF BREATH *Reorder from [facility] for eRx and Interaction Alerts* 10/06/2023 Active ECONAZOLE NITRATE 1% CREAM APPLY TO AFFECTED AREA TOPICALLY TWICE A DAY DIRECTED *Reorder from [facility] for eRx and Interaction Alerts* 10/27/2023 Active Mucinex Maximum Strength 1200 MG Tablet Extended Release 12 Hour Oral 2 times a day Active Nascobal 500 MCG/0.1ML Solution Nasal 2 times a day Active CEVIMELINE HCL 30 MG CAPSULE *Reorder from [facility] for eRx and Interaction Alerts* 02/16/[address] 50 MG TAB TAKE 1 TABLET BY MOUTH TWICE A DAY *Reorder from [email or web address] for eRx and Interaction Alerts* 11/29/2023 Active Imitrex 100 MG Tablet Oral as needed Active MUPIROCIN 2% OINTMENT TOPICAL APPLY PEASIZE AMOUNT TO BOTH NOSTRILS TWICE A DAY FOR 1 WEEK *Reorder from [email or web address] for eRx and Interaction Alerts* 02/02/2024 Active Levothyroxine Sodium 137 MCG Tablet TAKE 1 TABLET BY MOUTH EVERY DAY Oral 12/28/2023 Active Fiber 0.4 gram Capsule Oral every day *Pick strength-form from [email or web address] for eRX* Active Feosol 325 mg (65 mg iron) Tablet Oral every day *Pick strength-form from [email or web address] for eRX* Active Fish Oil 1000 MG Capsule Oral 2 times a day Active PAROXETINE HCL 10 MG TABLET TAKE 1 TABLET (10 MG TOTAL) BY MOUTH EVERY MORNING TO IMPROVE MOOD. *Reorder from [facility] for eRx and Interaction Alerts* 12/26/2023 Active Furosemide 40 MG Tablet TAKE 1 TABLET BY MOUTH EVERY DAY Oral 01/15/2024 Active ADVAIR HFA 230-21 MCG INHALER INHALE 2 PUFFS INTO THE LUNGS TWICE A DAY *Reorder from [facility] for eRx and Interaction Alerts* 02/02/2024 Active Colace 100 MG Capsule Oral every day Active Co Q-10 200 mg Capsule Oral every day Active GLUCOSAMINE 125 MG-CHONDROITN 100 MG-CARTILG 40 MG-COLAGN 10 MG TABLET tablet(s) ORAL every day *Reorder from [facility] for eRx and Interaction Alerts* Active ZOLPIDEM TARTRATE 10 MG TABLET TAKE 1 TABLET (10 MG TOTAL) BY MOUTH NIGHTLY FOR DIFFICULTY FALLING ASLEEP *Reorder from [email or web address] for eRx and Interaction Alerts* 02/05/2024 Active B-12 5,000-100 mcg Tablet Sublingual Sublingual every week *Pick strength-form from [facility] for eRX* Active Atorvastatin Calcium 40 MG Tablet TAKE 1 TABLET BY MOUTH EVERY DAY FOR CHOLESTEROL Oral 02/09/2024 Active Bentyl 10 mg Capsule Oral as needed *Pick strength-form from [facility] for eRX* Active Vitamin D3 125 mcg (5,000 unit) tablet tablet(s) ORAL every day *Reorder from [facility] for eRx and Interaction Alerts* Active Probiotic (B. coagulans) 1 billion cell chewable tablet tablet(s) ORAL every day *Reorder from [facility] for eRx and Interaction Alerts* Active Aspirin Adult Low Strength 81 MG Tablet Delayed Release Oral every day Active Vitamin C 500 mg Tablet Chewable Oral every day Active Caltrate 600 plus D 600 mg-20 mcg (800 unit) chewable tablet tablet(s) ORAL every day *Reorder from [facility] for eRx and Interaction Alerts* Active Sherry Allergy 180 MG Tablet Oral every day Active MONTELUKAST SOD 10 MG TABLET TAKE 1 TABLET BY MOUTH EVERY DAY *Reorder from [facility] for eRx and Interaction Alerts* 01/31/2024 Active Spironolactone 50 MG Tablet TAKE 1 TABLET BY MOUTH EVERY DAY Oral Active Vitamin B-1 250 mg Tablet Oral every day Active Social History Social History Additional Details Category Social Info Options Details Migrated Social History Migrated Social History Activity Level?: Sedentary, Alcohol Use?: No, Are you retired?: Y, Do You Have Children?: N, Home Blood Pressure Monitor: N, Home Exercise Equipment: cardiofit machine prn, Home Exercise Equipment?: Y, Reviewed Date: 02/17/2024, Smoking - former smokers - quit time?: 16+yearssincelastcigarette, Tobacco Quit Date?: 1989, Tobacco Smoking Status: Formerly Encounters Encounter Location Date Provider Diagnosis Migrated_Facility 0 0 03/27/2025 Provider Migration Plan Of Treatment No Information Progress Notes * STEPHENIEABELBRIANNEDOB:1950 (75 yo F)Acc No.[id number]:03/27/2025 Patient: MIRIAN QUIROS :1950 A ge:75 Y S ex:Female Address:[address] [place] [address] [place], [address] Subjective: * Chief Complaints: * E MR-Sai * Medical History: Problems: Calcification of coronary artery Chronic diastolic heart failure Hypercholesterolemia Hypothyroidism Murmur Palpitations * Surgical History: Cholecystectomy Gastrointestinal surgery Orthopedic surgery * Family History: M other: Heart murmur , Hypercholesterolemia , Hypertensive disorder . M aternal Grandmother: Myocardial infarction . * Social History: M igrated Social History: M igrated Social History: Activity Level?: Sedentary, A lcohol Use?: No, A re you retired?: Y, D o You Have Children?: N, H ome Blood Pressure Monitor: N, H ome Exercise Equipment: cardiofit machine prn, H ome Exercise Equipment?: Laurie R otiswebc Date: 02/17/2024, S moking - former smokers - quit time?: 16+yearssincelastciRip chiu obacco Quit Date?: 1989, T obacco Smoking Status: Formerly. * Medications: T akingAtorvastatin Calcium 40 MG Tablet TAKE 1 TABLET BY MOUTH EVERY DAY FOR CHOLESTEROL Oral B-12 5,000-100 mcg Tablet Sublingual Sublingual every week , Notes to Pharmacist: *Pick strength-form from [facility] for eRX*Bentyl 10 mg Capsule Oral as needed , Notes to Pharmacist: *Pick strength-form from [facility] for eRX*Co Q-10 200 mg Capsule Oral every day Colace 100 MG Capsule Oral every day Feosol 325 mg (65 mg iron) Tablet Oral every day , Notes to Pharmacist: *Pick strength-form from [facility] for eRX*Fiber 0.4 gram Capsule Oral every day , Notes to Pharmacist: *Pick strength-form from [facility] for eRX*Fish Oil 1000 MG Capsule Oral 2 times a day Furosemide 40 MG Tablet TAKE 1 TABLET BY MOUTH EVERY DAY Oral Imitrex 100 MG Tablet Oral as needed Levothyroxine Sodium 137 MCG Tablet TAKE 1 TABLET BY MOUTH EVERY DAY Oral Mucinex Maximum Strength 1200 MG Tablet Extended Release 12 Hour Oral 2 times a day Nascobal 500 MCG/0.1ML Solution Nasal 2 times a day Spironolactone 50 MG Tablet TAKE 1 TABLET BY MOUTH EVERY DAY Oral Vitamin B-1 250 mg Tablet Oral every day Vitamin C 500 mg Tablet Chewable Oral every day Aspirin Adult Low Strength 81 MG Tablet Delayed Release Oral every day Sherry Allergy 180 MG Tablet Oral every day Caltrate 600 plus D 600 mg-20 mcg (800 unit) chewable tablet tablet(s) ORAL every day , Notes to Pharmacist: *Reorder from [facility] for eRx and Interaction Alerts*Probiotic (B. coagulans) 1 billion cell chewable tablet tablet(s) ORAL every day , Notes to Pharmacist: *Reorder from [facility] for eRx and Interaction Alerts*Vitamin D3 125 mcg (5,000 unit) tablet tablet(s) ORAL every day , Notes to Pharmacist: *Reorder from [facility] for eRx and Interaction Alerts*GLUCOSAMINE 125 MG-CHONDROITN 100 MG-CARTILG 40 MG-COLAGN 10 MG TABLET tablet(s) ORAL every day , Notes to Pharmacist: *Reorder from [facility] for eRx and Interaction Alerts*MUPIROCIN 2% OINTMENT TOPICAL APPLY PEASIZE AMOUNT TO BOTH NOSTRILS TWICE A DAY FOR 1 WEEK , Notes to Pharmacist: *Reorder from [facility] for eRx and Interaction Alerts*PANTOPRAZOLE SOD DR 40 MG TAB TAKE 1 TABLET BY MOUTH TWICE A DAY , Notes to Pharmacist: *Reorder from [facility] for eRx and Interaction Alerts*ALBUTEROL HFA 90 MCG INHALER TAKE 2 PUFFS BY MOUTH EVERY 6 HOURS NEEDED FOR WHEEZE OR SHORTNESS OF BREATH , Notes to Pharmacist: *Reorder from [facility] for eRx and Interaction Alerts*ADVAIR HFA 230-21 MCG INHALER INHALE 2 PUFFS INTO THE LUNGS TWICE A DAY , Notes to Pharmacist: *Reorder from [facility] for eRx and Interaction Alerts*CEVIMELINE HCL 30 MG CAPSULE , Notes to Pharmacist: *Reorder from [facility] for eRx and Interaction Alerts*DICLOFENAC SOD DR 50 MG TAB TAKE 1 TABLET BY MOUTH TWICE A DAY , Notes to Pharmacist: *Reorder from [facility] for eRx and Interaction Alerts*ECONAZOLE NITRATE 1% CREAM APPLY TO AFFECTED AREA TOPICALLY TWICE A DAY DIRECTED , Notes to Pharmacist: *Reorder from [facility] for eRx and Interaction Alerts*MONTELUKAST SOD 10 MG TABLET TAKE 1 TABLET BY MOUTH EVERY DAY , Notes to Pharmacist: *Reorder from [facility] for eRx and Interaction Alerts*PAROXETINE HCL 10 MG TABLET TAKE 1 TABLET (10 MG TOTAL) BY MOUTH EVERY MORNING TO IMPROVE MOOD. , Notes to Pharmacist: *Reorder from [facility] for eRx and Interaction Alerts*ZOLPIDEM TARTRATE 10 MG TABLET TAKE 1 TABLET (10 MG TOTAL) BY MOUTH NIGHTLY FOR DIFFICULTY FALLING ASLEEP , Notes to Pharmacist: *Reorder from [facility] for eRx and Interaction Alerts*Taking Atorvastatin Calcium 40 MG Tablet TAKE 1 TABLET BY MOUTH EVERY DAY FOR CHOLESTEROL Oral Taking B-12 5,000-100 mcg Tablet Sublingual Sublingual every week , Notes to Pharmacist: *Pick strength-form from [facility] for eRX*Taking Bentyl 10 mg Capsule Oral as needed , Notes to Pharmacist: *Pick strength-form from [facility] for eRX*Taking Co Q-10 200 mg Capsule Oral every day Taking Colace 100 MG Capsule Oral every day Taking Feosol 325 mg (65 mg iron) Tablet Oral every day , Notes to Pharmacist: *Pick strength- form from [facility] for eRX*Taking Fiber 0.4 gram Capsule Oral every day , Notes to Pharmacist: *Pick strength-form from [facility] for eRX*Taking Fish Oil 1000 MG Capsule Oral 2 times a day Taking Furosemide 40 MG Tablet TAKE 1 TABLET BY MOUTH EVERY DAY Oral Taking Imitrex 100 MG Tablet Oral as needed Taking Levothyroxine Sodium 137 MCG Tablet TAKE 1 TABLET BY MOUTH EVERY DAY Oral Taking Mucinex Maximum Strength 1200 MG Tablet Extended Release 12 Hour Oral 2 times a day Taking Nascobal 500 MCG/0.1ML Solution Nasal 2 times a day Taking Spironolactone 50 MG Tablet TAKE 1 TABLET BY MOUTH EVERY DAY Oral Taking Vitamin B-1 250 mg Tablet Oral every day Taking Vitamin C 500 mg Tablet Chewable Oral every day Taking Aspirin Adult Low Strength 81 MG Tablet Delayed Release Oral every day Taking Sherry Allergy 180 MG Tablet Oral every day Taking Caltrate 600 plus D 600 mg-20 mcg (800 unit) chewable tablet tablet(s) ORAL every day , Notes to Pharmacist: *Reorder from [facility] for eRx and Interaction Alerts*Taking Probiotic (B. coagulans) 1 billion cell chewable tablet tablet(s) ORAL every day , Notes to Pharmacist: *Reorder from [facility] for eRx and Interaction Alerts*Taking Vitamin D3 125 mcg (5,000 unit) tablet tablet(s) ORAL every day , Notes to Pharmacist: *Reorder from [facility] for eRx and Interaction Alerts*Taking GLUCOSAMINE 125 MG-CHONDROITN 100 MG-CARTILG 40 MG-COLAGN 10 MG TABLET tablet(s) ORAL every day , Notes to Pharmacist: *Reorder from [facility] for eRx and Interaction Alerts*Taking MUPIROCIN 2% OINTMENT TOPICAL APPLY PEASIZE AMOUNT TO BOTH NOSTRILS TWICE A DAY FOR 1 WEEK , Notes to Pharmacist: *Reorder from [facility] for eRx and Interaction Alerts*Taking PANTOPRAZOLE SOD DR 40 MG TAB TAKE 1 TABLET BY MOUTH TWICE A DAY , Notes to Pharmacist: *Reorder from [facility] for eRx and Interaction Alerts*Taking ALBUTEROL HFA 90 MCG INHALER TAKE 2 PUFFS BY MOUTH EVERY 6 HOURS NEEDED FOR WHEEZE OR SHORTNESS OF BREATH , Notes to Pharmacist: *Reorder from [facility] for eRx and Interaction Alerts*Taking ADVAIR HFA 230-21 MCG INHALER INHALE 2 PUFFS INTO THE LUNGS TWICE A DAY , Notes to Pharmacist: *Reorder from [facility] for eRx and Interaction Alerts*Taking CEVIMELINE HCL 30 MG CAPSULE , Notes to Pharmacist: *Reorder from [facility] for eRx and Interaction Alerts*Taking DICLOFENAC SOD DR 50 MG TAB TAKE 1 TABLET BY MOUTH TWICE A DAY , Notes to Pharmacist: *Reorder from [facility] for eRx and Interaction Alerts*Taking ECONAZOLE NITRATE 1% CREAM APPLY TO AFFECTED AREA TOPICALLY TWICE A DAY DIRECTED , Notes to Pharmacist: *Reorder from [facility] for eRx and Interaction Alerts*Taking MONTELUKAST SOD 10 MG TABLET TAKE 1 TABLET BY MOUTH EVERY DAY , Notes to Pharmacist: *Reorder from [facility] for eRx and Interaction Alerts*Taking PAROXETINE HCL 10 MG TABLET TAKE 1 TABLET (10 MG TOTAL) BY MOUTH EVERY MORNING TO IMPROVE MOOD. , Notes to Pharmacist: *Reorder from [facility] for eRx and Interaction Alerts*Taking ZOLPIDEM TARTRATE 10 MG TABLET TAKE 1 TABLET (10 MG TOTAL) BY MOUTH NIGHTLY FOR DIFFICULTY FALLING ASLEEP , Notes to Pharmacist: *Reorder from [facility] for eRx and Interaction Alerts* * Allergies: A DHESIVE: Itching - Allergy - Onset Date 02/17/2024enzoin: Rash - Allergy - Onset Date 02/17/2024ephalosporins: Itching - Allergy - Onset Date 02/17/2024ipro: Nausea - Allergy - Onset Date 02/17/2024Ketoprofen: Rash - Allergy - Onset Date 02/17/2024enicillins: Rash, Itching, Hives - Allergy - Onset Date 02/17/2024 * * Date:
--- OUTSIDE RECORDS SUMMARY | 2025-07-25 14:03 | XMS_ITS | Patient Health Record ---
Author Organization [email or web address] Address [address] [place] [address] Care Team Providers Care Financial Associate Name Role Phone November Primary Care Provider Nathan Brink Unavailable [phone] Migration, Provider Unavailable Unavailable Reason For Referral No Information Medications Medication SIG (Take, Route, Frequency, Duration) Notes Start Date End Date Status MUPIROCIN 2% OINTMENT TOPICAL APPLY PEASIZE AMOUNT TO BOTH NOSTRILS TWICE A DAY FOR 1 WEEK *Reorder from [facility] for eRx and Interaction Alerts* 02/02/2024 Active Fiber 0.4 gram Capsule Oral every day *Pick strength-form from [facility] for eRX* Active CEVIMELINE HCL 30 MG CAPSULE *Reorder from [facility] for eRx and Interaction Alerts* 02/16/2024 Active Feosol 325 mg (65 mg iron) Tablet Oral every day *Pick strength-form from [facility] for eRX* Active Fish Oil 1000 MG Capsule Oral 2 times a day Active PAROXETINE HCL 10 MG TABLET TAKE 1 TABLET (10 MG TOTAL) BY MOUTH EVERY MORNING TO IMPROVE MOOD. *Reorder from [facility] for eRx and Interaction Alerts* 12/26/2023 Active Furosemide 40 MG Tablet TAKE 1 TABLET BY MOUTH EVERY DAY Oral 01/15/2024 Active Imitrex 100 MG Tablet Oral as needed Active Levothyroxine Sodium 137 MCG Tablet TAKE 1 TABLET BY MOUTH EVERY DAY Oral 12/28/2023 Active Vitamin D3 125 mcg (5,000 unit) tablet tablet(s) ORAL every day *Reorder from [facility] for eRx and Interaction Alerts* Active Probiotic (B. coagulans) 1 billion cell chewable tablet tablet(s) ORAL every day *Reorder from [facility] for eRx and Interaction Alerts* Active Mucinex Maximum Strength 1200 MG Tablet Extended Release 12 Hour Oral 2 times a day Active GLUCOSAMINE 125 MG-CHONDROITN 100 MG-CARTILG 40 MG-COLAGN 10 MG TABLET tablet(s) ORAL every day *Reorder from [facility] for eRx and Interaction Alerts* Active Nascobal 500 MCG/0.1ML Solution Nasal 2 times a day Active Aspirin Adult Low Strength 81 MG Tablet Delayed Release Oral every day Active Vitamin C 500 mg Tablet Chewable Oral every day Active ADVAIR HFA 230-21 MCG INHALER INHALE 2 PUFFS INTO THE LUNGS TWICE A DAY *Reorder from [facility] for eRx and Interaction Alerts* 02/02/2024 Active B-12 5,000-100 mcg Tablet Sublingual Sublingual every week *Pick strength-form from [facility] for eRX* Active Caltrate 600 plus D 600 mg-20 mcg (800 unit) chewable tablet tablet(s) ORAL every day *Reorder from [facility] for eRx and Interaction Alerts* Active PANTOPRAZOLE SOD DR 40 MG TAB TAKE 1 TABLET BY MOUTH TWICE A DAY *Reorder from [facility] for eRx and Interaction Alerts* 09/17/2023 Active Atorvastatin Calcium 40 MG Tablet TAKE 1 TABLET BY MOUTH EVERY DAY FOR CHOLESTEROL Oral 02/09/2024 Active Sherry Allergy 180 MG Tablet Oral every day Active DICLOFENAC SOD DR 50 MG TAB TAKE 1 TABLET BY MOUTH TWICE A DAY *Reorder from [facility] for eRx and Interaction Alerts* 11/29/2023 Active ALBUTEROL HFA 90 MCG INHALER TAKE 2 PUFFS BY MOUTH EVERY 6 HOURS NEEDED FOR WHEEZE OR SHORTNESS OF BREATH *Reorder from [facility] for eRx and Interaction Alerts* 10/06/2023 Active Bentyl 10 mg Capsule Oral as needed *Pick strength-form from [facility] for eRX* Active Colace 100 MG Capsule Oral every day Active Co Q-10 200 mg Capsule Oral every day Active ECONAZOLE NITRATE 1% CREAM APPLY TO AFFECTED AREA TOPICALLY TWICE A DAY DIRECTED *Reorder from [facility] for eRx and Interaction Alerts* 10/27/2023 Active Spironolactone 50 MG Tablet TAKE 1 TABLET BY MOUTH EVERY DAY Oral Active ZOLPIDEM TARTRATE 10 MG TABLET TAKE 1 TABLET (10 MG TOTAL) BY MOUTH NIGHTLY FOR DIFFICULTY FALLING ASLEEP *[facility] for [facility] and Interaction Alerts* 02/05/2024 Active Vitamin B-1 250 mg Tablet Oral every day Active MONTELUKAST SOD 10 MG TABLET TAKE 1 TABLET BY MOUTH EVERY DAY *Reorder from [facility] for eRx and Interaction Alerts* 01/31/2024 Active Social History Social History Additional Details [...] Formerly Encounters Encounter Location Date Provider Diagnosis [facility] 08/02/2024 Provider Migr ation Migrated_Facility 0 0 03/26/2025 Provider Migration Migrated_Facility 0 0 03/27/2025 Provider Migration Plan Of Treatment No Information Insurance Providers Payer Name Payer Address Payer Phone Subscriber Number Group Number Insured Name Patient Relationship to Insured Coverage Start Date Coverage End Date [place] [address] [place] [id number] MIRIAN CASIANO Self - patient is the insured [facility] [address] [place] [phone] [id number] MIRIAN CASIANO Self - patient is the insured Medical (General) History Surgical History Surgery Date(Month/Year) Cholecystectomy Gastrointestinal surgery Orthopedic surgery
--- OUTSIDE RECORDS SUMMARY | 2025-07-25 14:04 | XMS_ITS | Clinical Summary ---
Author Organization [facility] [address] Address [address] [place] [address] Care Team Providers Care Inner Layer Scrubber Tender Name Role Phone Daron Dias MD Primary Care Provider Allergies Active Allergy Reactions Criticality Noted Date Comments Adhesive Itching High 11/13/2015 Blisters prison use only Benzoin Rash Medium 09/16/2024 Cephalosporins Rash Medium 09/16/2024 Ciprofloxacin Nausea And Vomiting,Nausea only Medium 12/02/2007 Erythromycin Stomach upset Medium 11/13/2015 GI upset Ketoprofen Rash Medium 12/02/2007 Levofloxacin Unknown,Rash Medium 12/02/2007 Meloxicam Swelling Medium 12/02/2007 GI upset Penicillins Hives Medium 09/16/2024 Pravastatin Sodium Unknown High 03/04/2007 NAPROXEN: gi upset - Converted from [facility] Gi upset Tetanus And Diphther. Tox (Pf) Itching Low 09/16/2024 Tetanus Toxoid Itching,Rash Medium 11/13/2015 Medications aspirin 81 mg enteric coated tablet Take 1 tablet (81 mg total) by mouth daily Active atorvastatin (LIPITOR) 40 mg tablet Take 1 tablet (40 mg total) by mouth daily Active fluticasone propion-salmete roL (ADVAIR HFA) 230-21 mcg/actuation inhaler Inhale 2 puffs 2 (two) times a day Rinse mouth with water after use. Do not swallow. Active zolpidem (AMBIEN) 10 mg tabletIndicatio ns:Sleep-Onset Insomnia Take 1 tablet (10 mg total) by mouth nightly as needed for sleep Active montelukast (SINGULAIR) 10 mg tablet Take 1 tablet (10 mg total) by mouth nightly Active terbinafine (LamiSIL) 250 mg tablet Take 1 tablet (250 mg total) by mouth daily Active pantoprazole DR (PROTONIX) 40 mg EC tablet Take 1 tablet (40 mg total) by mouth daily Active diosmin complex no.1 630 mg tablet Take 900 mg by mouth daily Active calcium carbonate-vitam in D3 (CALTRATE 600 + D) 1500 mg (600 mg elemental) -400 units per tablet Take by mouth Active albuterol HFA (PROVENTIL HFA,VENTOLIN HFA,PROAIR HFA) 90 mcg/actuation inhaler Inhale 2 puffs every 6 (six) hours as needed 4 Active ascorbic acid 500 mg tablet,chewable Take 1 tablet/chew tab (500 mg total) by mouth daily Active diclofenac (CATAFLAM) 50 mg tablet Take 1 tablet (50 mg total) by mouth daily 5 Active cyanocobalamin (Vitamin B-12) 1,000 mcg tablet Take by mouth 8 Active cholecalciferol (VITAMIN D-3) 5,000 unit tablet Take 0.2 tablets (1,000 Units total) by mouth daily Active DOCOSAHEXAENOIC ACID ORAL 2 (two) times a day Active docusate sodium (COLACE) 250 mg capsule Take 1 capsule (250 mg total) by mouth daily Active ferrous sulfate ER 324 mg (65 mg iron) EC tablet Take 1 tablet (324 mg total) by mouth daily with breakfast Active fexofenadine (SNEHA) 180 mg tablet Take 1 tablet (180 mg total) by mouth daily Active folic acid 0.8 mg capsule Take 0.8 mg by mouth 3 (three) times a week Active glucosamine/cho ndr cazares A sod (glucosamine-ch ondroitin) 1,500-1,200 mg/30 mL liquid Take by mouth 8 Active hydroxychloroqu ine (PLAQUENIL) 200 mg tablet Take 2 tablets (400 mg total) by mouth daily 5 Active thiamine (VITAMIN B-1) 250 mg tablet Take 1 tablet (250 mg total) by mouth daily Active coenzyme Q10 200 mg capsule Take 1 capsule (200 mg total) by mouth daily Active magnesium hydroxide (CONCENTRATED MILK OF MAGNESIA) suspension 2,400 mg/10 mL Take by mouth as needed Active spironolactone (ALDACTONE) 50 mg tablet TAKE 1 TABLET(50 MG) BY MOUTH DAILY 90 tablet 2 Active furosemide (LASIX) 40 mg tablet TAKE 1 TABLET BY MOUTH EVERY DAY 90 tablet [address] (CYMBALTA) 30 mg capsule Take 1 capsule (30 mg total) by mouth 2 (two) times a day Active levothyroxine (SYNTHROID) 125 mcg tablet Take 1 tablet (125 mcg total) by mouth daily Active Active Problems Problem Noted Date Diagnosed Date Heart murmur 06/15/2025 Osteoporosis 05/23/2025 Sick sinus syndrome 12/30/2024 Palpitations 12/15/2024 Asymptomatic varicose veins of bilateral lower e xtremities 09/16/2024 Mixed hyperlipidemia 09/16/2024 CHF (congestive heart failur e), NYHA class I, unspecified failure chronicity, combined 09/13/2024 Encounters Date Type Department Care Team Description 07/14/2025 Telephone [facility] Medical [facility] Cardiology [address] [place] [address] [place] [phone] Juanis Jones NP 07/14/2025 Results Follow-Up [facility] Cardiology [address] [place] [address] [place] [phone] Jennifer Nye RN Transthoracic Echo (TTE) Complete W Doppler/CF 07/13/2025 11:15 AM PHYSICIAN CODER Ancillary Procedure [facility] Cardiology [address] [place] [address] [place] [phone] Heart murmur 07/05/2025 2:41 PM PHYSICIAN CODER - 07/05/2025 11:59 PM PHYSICIAN CODER Hospital Encounter [address] [address] Rosy Jimenez RN Osteoporosis, unspecified osteoporosis type, unspecified pathological fracture presence (Primary Dx) Discharge Disposition: Discharge to home or self care 06/25/2025 Orders Only [address] [address] Rosy Jimenez, RN 06/15/2025 1:30 PM PHYSICIAN CODER Office Visit [facility] Cardiology [address] [place] [address] [address] [place] [phone] Juanis Jones NP Sick sinus syndrome (HCC) (Primary Dx); Heart murmur 05/23/2025 Orders Only [facility] [address] [place] [phone] Kate Don, JONATHAN 05/23/2025 Orders Only [address] [address] Kate Don, JONATHAN 05/10/2025 1:00 PM CDT Office Visit [facility] Cardiology [address] [place] [address] [address] [place] [phone] Alysa Carrion NP Sick sinus syndrome (HCC) (Primary Dx); Palpitations; Shortness of breath 05/10/2025 Telephone [facility] Cardiology [address] [place] [address] [address] [place] [phone] Alysa Carrion NP 05/05/2025 Telephone [facility] Cardiology [address] [place] [address] [address] [place] [phone] Bianca Garcia MD Med Management from Last 3 Months Surgical History Surgery Date Site/Laterality Comments REPLACEMENT TOTAL KNEE Left ORIF FEMUR FRACTURE Left TOTAL SHOULDER REPLACEMENT Right ABLATION SAPHENOUS VEIN W/ RFA Left CHOLECYSTECTOMY JOINT REPLACEMENT FRACTURE SURGERY BARIATRIC SURGERY Lap band Medical History Medical History Date Comments Hypothyroidism Vertigo Asthma Obstructive sleep apnea CHF (congestive heart failure) ([facility]) Osteoporosis 05/23/2025 GERD (gastroesophageal reflux disease) Heart disease Depression Cataract Emphysema of lung Arthritis Chronic bronchitis ([facility]) Family History Medical History Relation Name Comments Cancer Father John Blackpatricio Diabetes Father John Blackpatricio Pancreatic cancer Father John Goldsmith Anemia Mother Diabetes Mother Hypertension Mother Arthritis Paternal Grandmother Relation Name Status Comments Father John Goldsmith Mother Paternal Grandmother Social History Tobacco Use Types Packs/Day Years Used Date Smoking Tobacco: Former Cigarettes 0.8 35 1 991 - 1971 Passive Smoke Exposure: Past Smokeless Tobacco: Never Tobacco Cessation:Counseling Given: Not Answered Comments Unknown Sex and Gender Information Value Date Recorded Sex Assigned at Not on file Legal Sex Female 8:42 AM PHYSICIAN CODER Gender Identity Not on file Sexual Orientation Not on file Last Filed Vital Signs Vital Sign Reading Time Taken Comments Blood Pressure 115/63 07/05/2025 2:55 PM PHYSICIAN CODER Pulse 52 07/05/2025 2:55 PM PHYSICIAN CODER Temperature 36.3 C (97.3 F) 07/05/2025 2:55 PM PHYSICIAN CODER Respiratory Rate 16 07/05/2025 2:55 PM PHYSICIAN CODER Oxygen Saturation 100% 07/05/2025 2:55 PM PHYSICIAN CODER Inhaled Oxygen Concentration - - Weight 98.9 kg (218 lb) 06/15/2025 1:25 PM PHYSICIAN CODER Height 160 cm (5' 3) 06/15/2025 1:25 PM PHYSICIAN CODER Body Mass Index 38.62 06/15/2025 1:25 PM PHYSICIAN CODER Plan of Treatment Health Maintenance Due Date Last Done Comments Colon Cancer Screening-Colonoscopy 1950 Depression Screening 1950 Fall Risk Assessment 1950 Hepatitis C Screening 1950 Hepatitis B Screening 1969 Zoster Vaccine (1 of 2) 1970 Well Visit 65+ 01/15/2016 Breast Cancer Screening-Mammogram 11/09/2024 11/10/2023, 10/15/2022, 10/12/2021, Additional history exists Covid-19 Vaccine (2024-2 6 season) 2025 12/11/2021, 05/09/2021, 09/22/2020, Additional history exists Influenza Vaccine (#1) 2025 , 04/11/2020, 05/10/2015, Additional history exists Osteoporosis Screening-Bone Density Scan 02/23/2026 02/24/2024, 02/24/2024, 02/25/2022, Additional history exists DTaP/Tdap/Td Vaccine (2 - Td or Tdap) 05/24/2029 05/24/2019, 05/24/2019, 08/10/2009 Pneumococcal vaccine 65+ Completed 025, 04/17/2023, 04/29/2019, Additional history exists Procedures Procedure Name Priority Date/Time Associated Diagnosis Comments TRANSTHORACIC ECHO (TTE) COMPLETE W DOPPLER/CF WO CONTRAST Routine 07/13/2025 12:16 PM PHYSICIAN CODER Heart murmur ELECTROCARDIOGRAM REPORT Routine 025 3:49 PM CDT Sick sinus syndrome (HCC) Palpitations Shortness of breath from Last 3 Months Results * TRANSTHORACIC ECHO (TTE) COMPLETE W DOPPLER/CF WO CONTRAST (07/13/2025 12:16 PM PHYSICIAN CODER) EF Mod BP 62 % CONS SCIMAGE Anatomical Region Laterality Modality Ultrasound 07/13/2025 11:3 5 AM PHYSICIAN CODER Narrative 07/13/2025 12:57 PM PHYSICIAN CODER [facility] Cardiology [address] [facility] [address], [place] [address] [address] [facility] [address], [place] [address] P:[phone] P:[phone] Echocardiographic Report Patient Name: MIRIAN VALDOVINOS : 1950 Study Date: 07/13/2025 11:35:46 AM Sex: F Senior Front End Web Developer: Ana Luisa Garcia)([place]), [facility] Location: [facility] Provider: JUANIS JONES Height(Cm): 160 BSA: 2.1 Weight(Kg): 98.9 Heart Rate: 58 BP: 115 / 63 Quality: Good Order Provider: JUANIS JONES PROCEDURES: Echocardiographic Report: Transthoracic echocardiogram with complete 2D, M-Mode, and color Doppler examination. With Strain Analysis. INDICATIONS: R01.1 Cardiac murmur, unspecified. MEASUREMENTS: 2D/MM Value Range Doppler Value Range EF Mod BP 62 % [ 54 - 74 ] MARTA Vmax 2.50 cm2 [ 2.00 - 4.00 ] LV GLS -19.63 % AV Mean PG 5 mmHg LVIDd 2D 4.64 cm [ 3.80 - 5.20 ] AV Peak Chet 1.58 m/s [ 1.00 - 1.70 ] LVIDs 2D 3.10 cm [ 2.20 - 3.50 ] AV Peak PG 10 mmHg LVPWd 2D 0.97 cm [ 0.60 - 0.90 ] AV VTI 37.66 cm IVSd 2D 1.10 cm [ 0.60 - 0.90 ] LVOT Diam 2.00 cm [ 1.70 - 2.10 ] AoR Diam 2D 3.14 cm [ 2.70 - 3.30 ] LVOT Peak Chet 1.26 m/s [ 0.70 - 1.10 ] LA Volume 60.74 ml [ 22.00 - 52.00 ] LVOT VTI 29.07 cm LA Volume Index 29 cc/m2 [ 16 - 28 ] MV E Peak Chet 1.04 m/s [ 0.60 - 1.30 ] RA Volume 22.91 ml MV A Peak Chet 1.02 m/s [ 1.00 - 1.20 ] MV Decel Time 162 msec [ 104 - 258 ] PV Peak Chet 1.26 m/s [ 0.40 - 0.80 ] TR Peak Chet 3.06 m/s [ 1.00 - 2.80 ] TR Peak PG 38 mmHg RVSP 42.00 mmHg [ 10.00 - 36.00 ] RV S` 13.44 mmHg Lateral E` 0.12 m/s [ 0.10 - 0.15 ] Septal E` 0.06 m/s [ 0.08 - 0.15 ] E` 0.09 m/s E/E` 12 Tapse 2.50 cm [ 1.71 - 5.00 ] 2D/MM Value Range Doppler Value Range - FINDINGS: Interpretation Site: Exam was interpreted at [facility]. Left Ventricle: Normal left ventricular size. Mild concentric left ventricular hypertrophy. Normal global left ventricular systolic function. Diastolic dysfunction is present. Ejection fraction is measured at 62 %. Global Longitudinal Strain is -20 %. Right Ventricle: Normal right ventricular size. Normal right ventricular systolic function. Left Atrium: There is mild enlargement of left atrium. Right Atrium: The right atrium is normal in size. Atrial Septum: Normal atrial septum. Mitral Valve: Mild mitral annular calcification. No mitral valve regurgitation is seen. Aortic Valve: No evidence of hemodynamically significant aortic stenosis by Doppler. Peak Velocity of 1.60 m/s. Mean gradient of 5.0 mmHg. Aortic cusps appear mildly sclerotic. Tricuspid Valve: Normal appearance of the tricuspid valve. Mild pulmonary hypertension based on right ventricular systolic pressure. Estimated peak RVSP is 42 mmHg. Mild tricuspid regurgitation. Pulmonic Valve: Normal appearance of the pulmonic valve. Mild pulmonic regurgitation. Pericardium: Normal pericardium with no significant pericardial effusion. Aorta: Normal aortic root. IVC: Dilated IVC with respiratory collapse consistent with elevated right atrial pressure (10-15 mmHg). CONCLUSIONS: Normal left ventricular size. Mild LVH. Normal global left ventricular systolic function. Diastolic dysfunction is present. Ejection fraction is measured at 62 %. Global Longitudinal Strain is -20 %. Normal right ventricular size and systolic function. Mild enlargement of left atrium. Mild mitral annular calcification. No significant MR. Mild aortic valve sclerosis. No hemodynamically significant stenosis. Peak Velocity of 1.60 m/s. Mean gradient of 5.0 mmHg. Mild pulmonary hypertension, RVSP 42 mmHg. Mild tricuspid and pulmonic regurgitation. Electronically Signed By: Dajuan Hadley MD, [facility] 07/13/2025 12:56:29 PM PHYSICIAN CODER Procedure Note Dajuan Hadley MD - 07/13/2025 [facility] Cardiology [address] [facility] [address] [address] [address] [facility] [address], [address], [place] [address] P:[phone] P:[phone] Echocardiographic Report Patient Name: MIRIAN VALDOVINOS : 1950 Study Date: 07/13/2025 11:35:46 AM Sex: F Senior Front End Web Developer: Ana Luisa Garcia)([place]), [facility] Location: [facility] Ref Provider: JUANIS JONES Height(Cm): 160 BSA: 2.1 Weight(Kg): 98.9 Heart Rate: 58 BP: 115 / 63 Quality: Good Order Provider: JUANIS JONES PROCEDURES: Echocardiographic Report: Transthoracic echocardiogram with complete 2D, M-Mode, and color Dopplerexamination. With Strain Analysis. INDICATIONS: R01.1 Cardiac murmur, unspecified. MEASUREMENTS: 2D/MM Value Range Doppler ValueRange EF Mod BP 62 % [ 54 - 74 ] MARTA Vmax 2.50cm2 [ 2.00 - 4.00 ] LV GLS -19.63 % AV Mean PG 5mmHg LVIDd 2D 4.64 cm [ 3.80 - 5.20 ] AV Peak Chet 1.58m/s [ 1.00 - 1.70 ] LVIDs 2D 3.10 cm [ 2.20 - 3.50 ] AV Peak PG 10mmHg LVPWd 2D 0.97 cm [ 0.60 - 0.90 ] AV VTI 37.66cm IVSd 2D 1.10 cm [ 0.60 - 0.90 ] LVOT Diam 2.00cm [ 1.70 - 2.10 ] AoR Diam 2D 3.14 cm [ 2.70 - 3.30 ] LVOT Peak Chet 1.26m/s [ 0.70 - 1.10 ] LA Volume 60.74 ml [ 22.00 - 52.00 ] LVOT VTI 29.07cm LA Volume Index 29 cc/m2 [ 16 - 28 ] MV E Peak Chet 1.04m/s [ 0.60 - 1.30 ] RA Volume 22.91 ml MV A Peak Chet 1.02m/s [ 1.00 - 1.20 ] MV Decel Time 162 msec [ 104 - 258 ] PV Peak Chet 1.26 m/s [ 0.40 - 0.80 ] TR Peak Chet 3.06 m/s [ 1.00 - 2.80 ] TR Peak PG 38 mmHg RVSP 42.00 mmHg [ 10.00 - 36.00 ] RV S` 13.44 mmHg Lateral E` 0.12 m/s [ 0.10 - 0.15 ] Septal E` 0.06 m/s [ 0.08 - 0.15 ] E` 0.09 m/s E/E` 12 Tapse 2.50 cm [ 1.71 - 5.00 ] 2D/MM Value Range Doppler ValueRange - FINDINGS: Interpretation Site: Exam was interpreted at [facility]. Left Ventricle: Normal left ventricular size. Mild concentric left ventricularhypertrophy. Normal global left ventricular systolic function. Diastolic dysfunction is present.Ejection fraction is measured at 62 %. Global Longitudinal Strain is -20 %. Right Ventricle: Normal right ventricular size. Normal right ventricular systolicfunction. Left Atrium: There is mild enlargement of left atrium. Right Atrium: The right atrium is normal in size. Atrial Septum: Normal atrial septum. Mitral Valve: Mild mitral annular calcification. No mitral valve regurgitation isseen. Aortic Valve: No evidence of hemodynamically significant aortic stenosis by Doppler.Peak Velocity of 1.60 m/s. Mean gradient of 5.0 mmHg. Aortic cusps appear mildlysclerotic. Tricuspid Valve: Normal appearance of the tricuspid valve. Mild pulmonary hypertensionbased on right ventricular systolic pressure. Estimated peak RVSP is 42 mmHg. Mildtricuspid regurgitation. Pulmonic Valve: Normal appearance of the pulmonic valve. Mild pulmonic regurgitation. Pericardium: Normal pericardium with no significant pericardial effusion. Aorta: Normal aortic root. IVC: Dilated IVC with respiratory collapse consistent with elevated rightatrial pressure (10-15 mmHg). CONCLUSIONS: Normal left ventricular size. Mild LVH. Normal global left ventricularsystolic function. Diastolic dysfunction is present. Ejection fraction is measured at 62 %.Global Longitudinal Strain is -20 %. Normal right ventricular size and systolic function. Mild enlargement of left atrium. Mild mitral annular calcification. No significant MR. Mild aortic valve sclerosis. No hemodynamically significant stenosis. PeakVelocity of 1.60 m/s. Mean gradient of 5.0 mmHg. Mild pulmonary hypertension, RVSP 42 mmHg. Mild tricuspid and pulmonicregurgitation. Electronically Signed By: Dajuan Hadley MD, [facility] 07/13/2025 12:56:29 PM PHYSICIAN CODER Juanis Jones NP CV ECHO PROCEDURES Final Res ult * Electrocardiogram Report (05/10/2025 3:49 PM CDT) us Alysa Carrion NP ECG ORDERABLES Edited Re sult - Final from Last 3 Months [place] [id number] [facility] Care Teams Inner Layer Scrubber Tender Relationship Specialty Start Date End Date Daron Dias MD [facility] [address] [address] PCP - General Family Practice 12/15/24
--- OUTSIDE RECORDS SUMMARY | 2025-07-25 14:04 | XMS_ITS | Encounter Summary ---
Author Organization [facility] Healthcare Address [address] [place] [address] Care Team Providers Care Enrolled Agent Name Role Phone Dionne Barbour MD Primary Care Provider [phone] Daron Dias MD Primary Care Provider Encounter Details Date Type Department Care Team (Late st Contact Info) Description 12/10/2024 Orders Only [facility] Health Information Management [address] [place] [id number] Scanning, Provider Social History Tobacco Use Types Packs/Day Years Used Date Smoking Tobacco: Former Cigarettes 0.8 35 1 991 - 0102 Passive Smoke Exposure: Past Comments Unknown Sex and Gender Information Value Date Recorded Sex Assigned at Not on file Legal Sex Female 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 Gender Identity Not on file Sexual Orientation Not on file documented as of this encounter Plan of Treatment Not on file documented as of this encounter Procedures Procedure Name Priority Date/Time Associated Diagnosis Comments CARDIOLOGY DOCUMENT SCAN 12/10/2024 documented in this encounter Results * Cardiology Document Scan (12/10/2024) Anatomical Region Laterality Modality Other us Provider Scanning CV CARDIAC SERVICES PROCEDURES Final Result documented in this encounter Visit Diagnoses Not on filedocumented in this encounter Care Teams Enrolled Agent Relationship Specialty Start Date End Date Dionne Barbour MD [address] [place] [address] PCP - General Sandblast Or Shotblast Equipment Tender 09/13/24 12/14/24 Daron Dias MD [facility] [address] [address] PCP - General Family Practice 12/15/24 documented as of this encounter
--- OUTSIDE RECORDS SUMMARY | 2025-07-25 14:04 | XMS_ITS | Patient Health Record ---
[facility] Organization [facility] Address [address] [place] [address] Care Team Providers Care Router Tender Name Role Phone DO NOT USE November Primary Care Provider NANA Velez Unavailable [phone] Allergies Allergen (clinical drug ingredient) Drug/Non Drug [...] Duration: 30 day(s) Active Fish Oil Active Dexter 10-325 MG 1 tablet as needed Orally [...] Status Risk Notes Problem Peripheral venous insufficiency (29513133) Venous insufficiency (chronic) (peripheral) (I87.2) Active confirmed Problem Peripheral venous insufficiency (78120980) Venous insufficiency (I87.2) Active confirmed Problem Varicose veins of lower extremity (05038189) 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) Active confirmed Plan Of Treatment No Information Insurance Providers Payer Name Payer Address Payer Phone Subscriber Number Group Number Insured Name Patient Relationship to Insured Coverage Start Date Coverage End Date [employer]ARE [place] [address] [place] [phone] [id number] MIRIAN CASIANO Self - patient is the insured 6 [facility] [address] [place] [address] [id number] PLAN F MIRIAN CASIANO Self - patient is the insured 6 Medical (General) History Medical History History ICD Code thyroid disease diverticulosis emphysema arthritis anemia asthma heart disease heart murmur Surgical History Surgery Date(Month/Year) eye surgery cholecystectomy foot surgery endovenous ablation knee replacement maxillary antrosomies
[2025-07-25 14:59] LABS: Hematocrit 38.3 % (37.0-47.0); Hemoglobin 12.0 g/dL (12.0-15.0); Immature Granulocyte Percent A 0.6 % (0-0.5); Immature Platelet Fraction Pct 8.5 % (0.9-11.2); Lymphocytes Absolute Auto 1.02 K/mm3 (0.9-3.2); Mean Corpuscular HGB Conc 31.3 g/dl (32-36); Mean Corpuscular Hemoglobin 31.3 pg (26-34); Mean Corpuscular Volume 100.0 fl (80-100); Nucleated Red Blood Cells Absolute Auto 0.000 K/mm3 (0.0-0.012); Nucleated Red Blood Cells Perc 0.0 % (0.0-0.2); Platelet Count Result 148 k/mm3 (150-375); Red Blood Count 3.83 M/mm3 (4.2-5.4); White Blood Count 4.7 K/mm3 (4.5-10.0)
[2025-07-25 15:13] LABS: Alanine Aminotransferase 25 U/L (6-35); Albumin Level 4.3 g/dL (3.5-5.1); Alkaline Phosphatase 50 U/L (38-126); Anion Gap 5 mmol/L (4-12); Aspartate Amino Transferase 38 U/L (14-36); Bilirubin,Total 0.6 mg/dL (0.2-1.3); Blood Urea Nitrogen 23 mg/dL (7-17); CRP < 0.5 mg/dL (<1.0); Calcium 9.4 mg/dL (8.4-10.2); Carbon Dioxide 31 mmol/L (22-30); Chloride 102 mmol/L (98-107); Estimated Glomerular Filt Rate 52; Glucose 99 mg/dL (65-110); Potassium 3.8 mmol/L (3.4-5.0); Sodium 138 mmol/L (137-145); Total Protein 7.2 g/dL (6.3-8.2)
[2025-07-25 17:35] LABS: Add Urine Microscopic? NO; Appearance Urine Clear (Clear); Glucose Urine UA Negative (Negative); Leukocyte Esterase Ur Negative LEU/UL (Negative); Nitrate Urine Negative (Negative); Specific Grav Ur 1.011 (1.001-1.035)
[2025-07-27 15:11] LABS: Thyroid Stimulating Hormone 8.020 uIU/mL (0.465-4.680)
== END 2025-07-25 13:09 | disposition home or self-care (01) ==
PROVIDERS: PCP Family Medicine; Visit Provider Internal Medicine
DX: E03.9 Hypothyroidism, unspecified (principal); M15.9 Polyosteoarthritis, unspecified; Z79.899 Other long term (current) drug therapy
CPT/HCPCS: 36415; 80053; 81003; 84443; 85025; 85055; 85652; 86140